=== PATIENT | female | born 1930 | race Caucasian/White ===

== ENCOUNTER → 2017-04-18 | Outpatient (CLI) | payer OTHER ==
[2016-01-21 09:18] VITALS: BP 166/76
--- NOTE | 2017-04-18 11:02 | RAD ---
HISTORY: Chronic pain. Study: Five views of the left shoulder. Comparison: Left shoulder series dated January 12, 2016. Findings: Diffuse osteopenia. 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 No ac andrew fracture or dislocation. Patient is status post vertebroplasty of several upper thoracic vertebr al bodies. The visualized lung is clear. IMPRESSION: Chronic findings as above. Reported By:
== END | disposition home or self-care (01) ==
LOC: RAD 10:21
PROVIDERS: ATTEND Specialist
DX: M75.82 Other shoulder lesions, left shoulder (principal); M85.88 Other specified disorders of bone density and structure, other site; M19.012 Primary osteoarthritis, left shoulder; Z98.890 Other specified postprocedural states
CPT/HCPCS: 73030

== ENCOUNTER 2017-06-05 17:24 | Inpatient (IN) | payer OTHER ==
[~2017-06-05 17:24] MED LIST: DIPRIVAN VIAL ONE; ZOFRAN INJ 4 MG VIAL ONE
--- NOTE | 2017-06-05 17:46 | DR.GENAD ---
HPI - PCP Primary Care Physician: DIANELYS - Complaint/Symptoms Chief Complaint:: PATIENT STATED THAT SHE FEEL EARLIER AND NOW IS C/O LEFT HIP PAIN - Nurses notes reviewed Nurses Notes Review: Yes - Source History Provided: Patient - Mode of Arrival Mode of Arrival: EMS - Timing Onset of Chief Complaint: 06/05/17 PMH - PMH Past Medical History: Yes Past Medical History: Hypertension, Hyperthyroidism Past Surgical History: Yes Surgical History: Hysterectomy, Ortho Surgery - Family History History of Family Medical Conditions: No - Social History Does patient currently use any type of tobacco product: No Have you used tobacco products in the last 12 months: No Type of Tobacco Use: None Does any household member use tobacco: No Alcohol Use: None Do you use any recreational Drugs:: No Lives With: Alone Lives Where: Home - infectious screening In the last 2 months have you had wt loss of >10#?: NO Have you had fever, night sweats or hemotysis?: No Have you traveled outside the country in the last 6 months?: No Isolation: Standard PE - Vital Signs Vitals: Temperature 98.4 F Pulse Rate [Left Brachial] 84 Pulse Rate 79 Respiratory Rate 16 Blood Pressure [Right Arm] 189/86 Blood Pressure 167/77 O2 Sat by Pulse Oximetry 99 ROR - Labs Reviewed Result Diagrams: 06/05/17 17:53 06/05/17 17:53 Laboratory: WBC 8.6 X10^3/uL (3.6-10.0) 06/05/17 17:53 RBC 4.46 X10^6/uL (3.5-5.4) 06/05/17 17:53 Hgb 13.7 g/dL (12.0-16.0) 06/05/17 17:53 Hct 40.1 % (36.0-47.0) 06/05/17 17:53 MCV 89.8 fL (80.0-100.0) 06/05/17 17:53 MCH 30.7 pg (27.0-34.0) 06/05/17 17:53 MCHC 34.2 g/dL (33.0-35.0) 06/05/17 17:53 RDW 14.0 % (11.6-16.5) 06/05/17 17:53 Plt Count 184 X10^3/uL (150.0-450.0) 06/05/17 17:53 MPV 9.0 fL (7.4-11.0) 06/05/17 17:53 Neut % 76.2 % (42.0-75.0) H 06/05/17 17:53 Lymph % 18.2 % (21.0-51.0) L 06/05/17 17:53 Brown % 4.5 % (0.0-13.0) 06/05/17 17:53 Eos % 0.1 % (0.9-2.9) L 06/05/17 17:53 Baso % 1.0 % (0.2-1.0) 06/05/17 17:53 Neut # 6.6 x10^3/uL (2.2-4.8) H 06/05/17 17:53 Lymph # 1.6 X10^3/uL (1.3-2.9) 06/05/17 17:53 Brown # 0.4 x10^3/uL (0.3-0.8) 06/05/17 17:53 Eos # 0.0 x10^3/uL (0.0-0.2) 06/05/17 17:53 Baso # 0.1 X10^3/uL (0.0-0.1) 06/05/17 17:53 Absolute Nucleated RBC 0.1 /100WBC 06/05/17 17:53 INR Target Range - 06/05/17 17:53 INR 0.98 (0.8-1.3) 06/05/17 17:53 PTT 23.9 SECONDS (22.9-36.5) 06/05/17 17:53 PTT Comment - 06/05/17 17:53 Sodium 142 mmol/L (136-145) 06/05/17 17:53 Corrected Sodium 142 mmol/L (136-145) 06/05/17 17:53 Potassium 4.3 mmol/L (3.5-5.1) 06/05/17 17:53 Chloride 105 mmol/L (98-107) 06/05/17 17:53 Carbon Dioxide 33.4 mmol/L (21-32) H 06/05/17 17:53 BUN 57 mg/dL (7-18) H 06/05/17 17:53 Creatinine 1.73 mg/dL (0.55-1.02) H 06/05/17 17:53 Est GFR (MDRD) Af Amer 36 (>60) L 06/05/17 17:53 Est GFR (MDRD) Non-Af 30 (>60) L 06/05/17 17:53 Glucose 117 mg/dL (65-99) H 06/05/17 17:53 Calcium 9.1 mg/dL (8.5-10.1) 06/05/17 17:53 Corrected Calcium TNP 06/05/17 17:53 Total Bilirubin 0.30 mg/dL (0.2-1.0) 06/05/17 17:53 AST 19 Units/L (15-37) 06/05/17 17:53 ALT 18 Units/L (12-78) 06/05/17 17:53 Alkaline Phosphatase 54 Units/L (46-116) 06/05/17 17:53 Total Protein 7.9 g/dL (6.4-8.2) 06/05/17 17:53 Albumin 3.6 g/dL (3.4-5.0) 06/05/17 17:53 Globulin 4.3 g/dL (2.5-4.5) 06/05/17 17:53 Albumin/Globulin Ratio 0.8 Ratio (1.1-2.1) L 06/05/17 17:53 Blood Type AB NEGATIVE 06/05/17 17:53 Antibody Screen Negative 06/05/17 17:53 Crossmatch See Detail 06/05/17 17:53 - Discharge Plan Condition: Stable - Follow ups/Referrals - Instructions
[2017-06-05 18:08] LABS: BASOPHILS # (AUTO) 0.1 X10^3/uL (0.0-0.1); EOSINOPHILS % (AUTO) 0.1 % (0.9-2.9); HEMATOCRIT 40.1 % (36.0-47.0); HEMOGLOBIN 13.7 g/dL (12.0-16.0); LYMPHOCYTES # (AUTO) 1.6 X10^3/uL (1.3-2.9); LYMPHOCYTES % (AUTO) 18.2 % (21.0-51.0); MEAN CORPUSCULAR HEMOGLOBIN 30.7 pg (27.0-34.0); MEAN CORPUSCULAR HGB CONC 34.2 g/dL (33.0-35.0); MEAN CORPUSCULAR VOLUME 89.8 fL (80.0-100.0); MONOCYTES # (AUTO) 0.4 x10^3/uL (0.3-0.8); MONOCYTES % (AUTO) 4.5 % (0.0-13.0); NEUTROPHILS # (AUTO) 6.6 x10^3/uL (2.2-4.8); NEUTROPHILS % (AUTO) 76.2 % (42.0-75.0); PLATELET COUNT 184 X10^3/uL (150.0-450.0); RED BLOOD COUNT 4.46 X10^6/uL (3.5-5.4); WHITE BLOOD COUNT 8.6 X10^3/uL (3.6-10.0)
[2017-06-05 18:17] LABS: ALANINE AMINOTRANSFERASE 18 Units/L (12-78); ALBUMIN 3.6 g/dL (3.4-5.0); ALKALINE PHOSPHATASE 54 Units/L (46-116); ASPARTATE AMINO TRANSFERASE 19 Units/L (15-37); BLOOD UREA NITROGEN 57 mg/dL (7-18); CALCIUM 9.1 mg/dL (8.5-10.1); CARBON DIOXIDE 33.4 mmol/L (21-32); CHLORIDE 105 mmol/L (98-107); COR NA(FOR HYPERGLY) 142 mmol/L (136-145); CREATININE 1.73 mg/dL (0.55-1.02); GLUCOSE 117 mg/dL (65-99); SODIUM 142 mmol/L (136-145); TOTAL PROTEIN 7.9 g/dL (6.4-8.2); eGFR BLACK RACES 36 (>60); eGFR NON BLACK RACES 30 (>60)
--- NOTE | 2017-06-05 18:56 | CT ---
CT pelvis without contrast Indication: Left hip pain post fall Comparison: None available Technique: Multiple axial images of the pelvis were obtained from the iliac crest to the proximal th igh without administration of IV contrast. Sagittal and coronal reformats were performed and review ed. Radiation dose reduction techniques were performed utilizing adjustment for MA/kVP based on patient body size. Findings: The there is acute fracture within the intertrochanteric left proximal femur. There is a comminuted, mildly displaced greater trochanteric fracture. The lesser trochanter remains intact. Femoral head remains well positioned within the left acetabulum. There are chronic, healed fracture deformities o f the right inferior and superior pubic rami. Moderate degenerative changes noted within the right f emoral acetabular joint. The pubic symphysis and SI joints are intact. There are degenerative change s within both the pubic symphysis and SI joints. Moderate osteopenia. Moderate calcified atheroscler otic disease of the visualized abdominal aorta. There is cortical irregularity and focal angulation involving the superior sacrum on sagittal image 47 consistent with an age-indeterminate sacral fracture. Impression: 1.Acute proximal left femoral fracture centered within the intertrochanteric region of the left femu r with comminuted, mildly displaced fracture extending into the greater trochanter. No femoral head dislocation or acetabular fracture. 2.Age indeterminate superior sacral fracture 3. Healed fracture deformities of the right superior inferior pubic rami . 4. Moderate osteopenia . Reported By:
[2017-06-05] MEDS ORDERED: MORPHINE SULFATE INJ 4 MG IVP ONE (19:37)
[2017-06-05] MEDS ORDERED: MORPHINE SULFATE INJ 4 MG ONE (19:38)
--- NOTE | 2017-06-05 20:31 | RAD ---
AP Chest Indication: Chest pain Comparison: 11/28/2015 Findings: The trachea is midline. Heart size is mildly enlarged, unchanged from prior exam. Large hiatal herni a is again noted. Calcified atherosclerotic disease of the aortic arch. Moderate diffuse coarsening of the interstitium consistent chronic interstitial lung changes. Rounded area of increased opacity projecting over the left upper lobe is indeterminate, this may re present confluence of osseous shadows and pulmonary vasculature however correlation with followup PA and lateral chest radiograph is recommended for improved characterization and exclusion of underlyi ng pulmonary nodule or infiltrate. No pleural effusion or pneumothorax. Moderate osteopenia without acute osseous abnormality. Methylme thacrylate is again noted within mid thoracic spine vertebral bodies. Impression: See above. Reported By:
[2017-06-05] MEDS ORDERED: KETALAR ONE (20:32)
[2017-06-05] MEDS ORDERED: NS 1000 ML 1,000 ML ONE (20:32)
[2017-06-05] MEDS ORDERED: MARCAINE/EPINEPHRINE ONE ×2 (20:32→21:39)
[2017-06-05] MEDS ORDERED: XYLOCAINE 1 % (PLAIN) ONE (21:02)
[2017-06-05] MEDS: NS 1000 ML 1,000 ML IV SCH (21:10)
[2017-06-05] MEDS ORDERED: NARCAN INJ IVP PRN (21:59)
[2017-06-05] MEDS ORDERED: DILAUDID PCA 60 MG IVP PRN (21:59)
--- NOTE | 2017-06-05 22:05 | DR.H&P ---
H&P - History & Physical for Day of: H&P Date: 06/05/17 - Chief Complaint Chief Complaint: left femur fx - Allergies Allergies/Adverse Reactions: Allergies Allergy/AdvReac Type Severity Reaction Status Date / Time Methylprednisolone Allergy Verified 05/26/14 08:55 [From Medrol] - History of Present Illness History of Present Illness: left femur fx secondary to fall - Past Medical History Past Medical History: Hypertension, Hyperthyroidism - Past Surgical History Surgical History: Hysterectomy, Ortho Surgery - Social History Does patient currently use any type of tobacco product: No Have you used tobacco products in the last 12 months: No Type of Tobacco Use: None Does any household member use tobacco: No Alcohol Use: None - Medications Home Medications: Acetaminophen with Codeine [Tylenol with Codeine #3 Tablet] 1 tab PO BID PRN [History Confirmed 06/05/17] - Review of Systems Musculoskeletal: Leg Pain - Physical Exam Vital Signs: Temperature 98.4 F Pulse Rate [Left Brachial] 84 Respiratory Rate 16 Blood Pressure [Right Arm] 144/70 O2 Sat by Pulse Oximetry 100 Musculoskeletal: Left, Leg Mood Description: Calm - Assessment/Plan (1) Fx femur shaft-closed Qualifiers: Encounter type: E Fracture morphology: F Fracture alignment: F Laterality: L Fracture healing: F Status: Acute Plan: lumbar epidural for pre and post op pain control per Dr Aaron request
--- NOTE | 2017-06-05 22:34 | CT ---
CT chest without contrast Indication: Chest pain, abnormal chest radiograph Comparison: Chest radiograph from earlier the same day. Technique: CT images of the chest were obtained without contrast. Automatic exposure control was uti lized. Findings: There is generalized osteopenia with multiple chronic compression deformities with previou s T8 and T9 kyphoplasty. There is vertebra plana at T6 and T10. No aggressive osseous lesions are se en. Images through the upper abdomen demonstrate no acute abnormality. There is large hiatal hernia containing essentially the entire stomach. There is a 1.3 cm calcification within the thyroid. Consider ultrasound for further evaluation, if i ndicated. The heart size is normal, without significant pericardial thickening or pericardial effusion. Marked thoracic aortic atherosclerosis is noted, although the aorta is non aneurysmal. No intrathoracic ad enopathy identified, within the limitations of a noncontrast study. There are chronic appearing mild interstitial changes of the lungs, most predominant within the base s and apices. No solid mass or acute consolidation identified. There is no significant pleural effus ion or pneumothorax. The major airways are patent. Impression: 1. Mild interstitial changes of the lungs. No acute consolidation or lung mass. The radiographic fin ding was likely artifactual. 2. Large hiatal hernia, osteopenia with multiple thoracic compression fractures, and other findings as above. Reported By:
[2017-06-05] MEDS: ZOFRAN INJ 4 MG VIAL IVP PRN (22:53)
[2017-06-05 23:48] LABS: BILIRUBIN,URINE NEGATIVE (NEGATIVE); BLOOD/HEMOGLOBIN,URINE 1+ (NEGATIVE); GLUCOSE, URINE NEGATIVE (NEGATIVE); KETONES,URINE NEGATIVE (NEGATIVE); LEUKOCYTE ESTERASE ,URINE NEGATIVE (NEGATIVE); NITRITES,URINE POSITIVE (NEGATIVE); PROTEIN,URINE 2+ (NEGATIVE); UROBILINOGEN,URINE NORMAL (NORMAL)
[2017-06-06 00:17] LABS: APPEARANCE,URINE HAZY (CLEAR); BACTERIA,URINE 3+ /HPF (NEGATIVE); COLOR,URINE YELLOW (YELLOW); RBC,URINE 0-3 /HPF (NEGATIVE); SQUAMOUS EPITHELIAL CELL,UR RARE /HPF (NEGATIVE)
[2017-06-06] MEDS: MORPHINE SULFATE INJ 2 MG IVP PRN ×2 (04:00→08:14)
[2017-06-06 06:12] LABS: BASOPHILS % (AUTO) 0.2 % (0.2-1.0); HEMATOCRIT 34.3 % (36.0-47.0); HEMOGLOBIN 11.5 g/dL (12.0-16.0); LYMPHOCYTES # (AUTO) 0.8 X10^3/uL (1.3-2.9); LYMPHOCYTES % (AUTO) 6.1 % (21.0-51.0); MEAN CORPUSCULAR HEMOGLOBIN 30.2 pg (27.0-34.0); MEAN CORPUSCULAR HGB CONC 33.5 g/dL (33.0-35.0); MEAN CORPUSCULAR VOLUME 90.4 fL (80.0-100.0); MEAN PLATELET VOLUME 9.5 fL (7.4-11.0); MONOCYTES # (AUTO) 0.8 x10^3/uL (0.3-0.8); MONOCYTES % (AUTO) 5.5 % (0.0-13.0); NEUTROPHILS # (AUTO) 12.2 x10^3/uL (2.2-4.8); NEUTROPHILS % (AUTO) 88.2 % (42.0-75.0); PLATELET COUNT 169 X10^3/uL (150.0-450.0); RED BLOOD COUNT 3.79 X10^6/uL (3.5-5.4); RED CELL DISTRIBUTION WIDTH 14.2 % (11.6-16.5); WHITE BLOOD COUNT 13.8 X10^3/uL (3.6-10.0)
[2017-06-06 06:41] LABS: ALBUMIN 3.3 g/dL (3.4-5.0); CALCIUM 8.4 mg/dL (8.5-10.1); CARBON DIOXIDE 29.2 mmol/L (21-32); CREATININE 1.56 mg/dL (0.55-1.02); TOTAL PROTEIN 7.2 g/dL (6.4-8.2)
[2017-06-06] MEDS: ROCEPHIN VIAL 1 GM 1 GM in NS 50 ML IV + SPIKE MINIBAG* 50 ML IV SCH (08:57)
--- NOTE | 2017-06-06 09:18 | DR.H&P ---
H&P - History & Physical for Day of: H&P Date: 06/05/17 - Chief Complaint Chief Complaint: fall, left hip pain - Allergies Allergies/Adverse Reactions: Allergies Allergy/AdvReac Type Severity Reaction Status Date / Time iodine AdvReac Verified 06/05/17 23:16 methylprednisolone AdvReac Verified 06/05/17 23:16 [From Medrol] - History of Present Illness History of Present Illness: ER ADMISSION AFTER FALL WITH LEFT HIP PAIN. PT STATES SHE HAD BEEN WORKING IN [employer] ALL DAY BUT DID NOT FEEL OVER HEATED. PT THINKS SHE STEPPED WRONG AND FELL ON LEFT SIDE. PT XRAY IN THE ED LEFT FEMUR FRACTURE. PT ADMITTED FOR ORTHO CONSULT AND PAIN CONTROL. PT HAD PMH OF HTN. - Past Medical History Past Medical History: GERD, Hypertension, Hyperthyroidism - Past Surgical History Surgical History: Hysterectomy, Ortho Surgery - Social History Does patient currently use any type of tobacco product: No Have you used tobacco products in the last 12 months: No Type of Tobacco Use: None Does any household member use tobacco: No Alcohol Use: None Drug Use: None - Medications Home Medications: Acetaminophen with Codeine [Tylenol with Codeine #3 Tablet] 1 - 2 tab PO Q4H PRN 06/05/17 [History Confirmed 06/05/17] - Review of Systems Constitutional: No Symptoms Reported Eyes: No Symptoms Reported ENT: No Symptoms Reported Respiratory: No Symptoms Reported Cardiovascular: No Symptoms Reported Gastrointestinal: Nausea, Other (APPETITE) Musculoskeletal: Leg Pain (LEFT HIP) Skin: Bruising Neurological: No Symptoms Reported - Physical Exam Vital Signs: Temperature 98.9 F Pulse Rate [Left Brachial] 98 Respiratory Rate 20 Blood Pressure [Right Arm] 117/77 O2 Sat by Pulse Oximetry 97 Oriented: Normal Eyes: Normal Ear: Normal Nose: Normal Throat: Normal Respiratory: Clear Throughout Cardiovascular: Normal : Normal Auscultation: Bowel Sounds: Normal Palpation: Normal Tenderness: Epigastric (MILD) Skin: Normal Musculoskeletal: Left, Hip, Deformity, Motor Deficit Psychiatric: Anxiety Mood Description: Calm Speech Pattern: Clear - Assessment/Plan (1) Fx femur shaft-closed Qualifiers: Encounter type: E Fracture morphology: F Fracture alignment: F Laterality: L Fracture healing: F Status: Acute Plan: ADMIT FOR ORTHO CONSULT AND PAIN CONTROL. BP CONTROL (2) Hypertension Qualifiers: Hypertension type: H Status: Acute (3) Hypothyroid Qualifiers: Hypothyroidism type: H Status: Acute
[2017-06-06] MEDS ORDERED: MORPHINE SULFATE INJ 4 MG IVP PRN (10:10)
[2017-06-06] MEDS: NS 1000 ML 1,000 ML IV SCH ×2 (10:43→21:16)
[2017-06-06] MEDS ORDERED: NS 1000 ML 1,000 ML ONE (12:22)
[2017-06-06] MEDS ORDERED: XYLOCAINE 2% and EPINEPHRINE 1:100,000 ONE (13:11)
[2017-06-06 13:50] VITALS: BMI 16.6
[2017-06-06] MEDS ORDERED: NS 50 ML IV + SPIKE MINIBAG* 50 ML IV ONE (13:52)
[2017-06-06] MEDS ORDERED: ANCEF VIAL 1 GM ONE (13:52)
[2017-06-06] MEDS ORDERED: BACITRACIN VIAL ONE (14:57)
[2017-06-06] MEDS ORDERED: BACTROBAN OINT ONE (15:15)
[2017-06-06] MEDS ORDERED: MORPHINE SULFATE PCA 30 MG IV PRN (15:17)
[2017-06-06] MEDS ORDERED: ZOFRAN INJ 4 MG VIAL IVP PRN (15:33)
[2017-06-06] MEDS ORDERED: DILAUDID INJ IVP PRN (15:33)
[2017-06-06] MEDS ORDERED: PHENERGAN INJ 25 MG IVP PRN (15:33)
[2017-06-06] MEDS ORDERED: BENADRYL INJ 50 MG VIAL IVP PRN (15:33)
[2017-06-06] MEDS ORDERED: NS IJ PRN ×2 (16:10)
[2017-06-06] MEDS ORDERED: Q PUMP EPI PRN (16:10)
[2017-06-06] MEDS ORDERED: MARCAINE 0.5% IJ PRN ×2 (16:10)
[2017-06-06] MEDS: VALIUM PO PRN (16:15)
--- NOTE | 2017-06-06 16:43 | RAD ---
Left hip two views Indication: Postop left hip radiographs-two views Indication: Left femoral neck fracture has been reduced in near anatomic alignment, with femoral nec k and shaft elizabeth and screw fixation hardware in position. Gas in clips seen about the left hip. Bowel gas obscures the pelvis which shows degenerative change at the SI joints and right hip. Osteopenia is present. Impression: Interval fixation of the left femoral neck fracture projects as expected. Reported By:
[2017-06-06] MEDS: ZOFRAN INJ 4 MG VIAL IVP PRN (17:06)
[2017-06-06] MEDS ORDERED: VALIUM PO PRN (18:33)
--- NOTE | 2017-06-06 18:35 | PCM.PROG ---
Progress Note - Progress Note for Day of Date: 06/06/17 - Subjective Subjective: 86 WF ADMITTED ON 06/05 WITH LEFT FEMUR FRACTURE, PT NPO FOR HIP REPAIR PER DR VELASCO THIS AM. - Past Medical Family Social History Past Med/Fam/Surg Hx: No changes since H&P Allergies: Allergies iodine Adverse Reaction (Verified 06/05/17 23:16) methylprednisolone [From Medrol] Adverse Reaction (Verified 06/05/17 23:16) - Review of Systems ROS: No change since H&P - Vital Signs and I&O's Vital Signs: Temperature 98 F Pulse Rate [Right Brachial] 93 Pulse Rate [Left Brachial] 98 Pulse Rate 98 Respiratory Rate 18 Blood Pressure [Right Arm] 142/68 Blood Pressure 133/79 O2 Sat by Pulse Oximetry 95 Intake and Output: Intake & Output 06/04/17 06/05/17 06/06/17 06/07/17 11:59 11:59 11:59 11:59 Intake Total 0 450 Output Total 400 2750 Balance -400 -2300 - Physical Exam Oriented: Normal Eyes: Normal Ear: Normal Nose: Normal Throat: Normal Respiratory: Normal Cardiovascular: Normal : Normal Auscultation: Bowel Sounds: Normal Tenderness: Epigastric (MILD) Skin: Normal Musculoskeletal: Left, Hip, Deformity, Motor Deficit Psychiatric: Anxiety Mood Description: Calm Speech Pattern: Clear, Appropriate - Laboratory and Diagnostics Result Diagrams: 06/06/17 05:35 06/06/17 05:35 Labs: Laboratory WBC 13.8 X10^3/uL (3.6-10.0) H 06/06/17 05:35 RBC 3.79 X10^6/uL (3.5-5.4) 06/06/17 05:35 Hgb 11.5 g/dL (12.0-16.0) L D 06/06/17 05:35 Hct 34.3 % (36.0-47.0) L 06/06/17 05:35 MCV 90.4 fL (80.0-100.0) 06/06/17 05:35 MCH 30.2 pg (27.0-34.0) 06/06/17 05:35 MCHC 33.5 g/dL (33.0-35.0) 06/06/17 05:35 RDW 14.2 % (11.6-16.5) 06/06/17 05:35 Plt Count 169 X10^3/uL (150.0-450.0) 06/06/17 05:35 MPV 9.5 fL (7.4-11.0) 06/06/17 05:35 Neut % 88.2 % (42.0-75.0) H 06/06/17 05:35 Lymph % 6.1 % (21.0-51.0) L 06/06/17 05:35 [place] % 5.5 % (0.0-13.0) 06/06/17 05:35 Eos % 0.0 % (0.9-2.9) L 06/06/17 05:35 Baso % 0.2 % (0.2-1.0) 06/06/17 05:35 Neut # 12.2 x10^3/uL (2.2-4.8) H 06/06/17 05:35 Lymph # 0.8 X10^3/uL (1.3-2.9) L 06/06/17 05:35 [place] # 0.8 x10^3/uL (0.3-0.8) 06/06/17 05:35 Eos # 0.0 x10^3/uL (0.0-0.2) 06/06/17 05:35 Baso # 0.0 X10^3/uL (0.0-0.1) 06/06/17 05:35 Absolute Nucleated RBC 0.0 /100WBC 06/06/17 05:35 INR Target Range - 06/05/17 17:53 INR 0.98 (0.8-1.3) 06/05/17 17:53 PTT 23.9 SECONDS (22.9-36.5) 06/05/17 17:53 PTT Comment - 06/05/17 17:53 Sodium 144 mmol/L (136-145) 06/06/17 05:35 Corrected Sodium 145 mmol/L (136-145) 06/06/17 05:35 Potassium 5.1 mmol/L (3.5-5.1) 06/06/17 05:35 Chloride 108 mmol/L (98-107) H 06/06/17 05:35 Carbon Dioxide 29.2 mmol/L (21-32) 06/06/17 05:35 BUN 46 mg/dL (7-18) H 06/06/17 05:35 Creatinine 1.56 mg/dL (0.55-1.02) H 06/06/17 05:35 Est GFR (MDRD) Af Amer 40 (>60) L 06/06/17 05:35 Est GFR (MDRD) Non-Af 33 (>60) L 06/06/17 05:35 Glucose 143 mg/dL (65-99) H 06/06/17 05:35 Calcium 8.4 mg/dL (8.5-10.1) L 06/06/17 05:35 Corrected Calcium 9.0 mg/dL (8.5-10.1) 06/06/17 05:35 Total Bilirubin 0.50 mg/dL (0.2-1.0) 06/06/17 05:35 AST 18 Units/L (15-37) 06/06/17 05:35 ALT 18 Units/L (12-78) 06/06/17 05:35 Alkaline Phosphatase 47 Units/L (46-116) 06/06/17 05:35 Total Protein 7.2 g/dL (6.4-8.2) 06/06/17 05:35 Albumin 3.3 g/dL (3.4-5.0) L 06/06/17 05:35 Globulin 3.9 g/dL (2.5-4.5) 06/06/17 05:35 Albumin/Globulin Ratio 0.8 Ratio (1.1-2.1) L 06/06/17 05:35 Specimen Type Catherized urine 06/05/17 23:31 Urine Color Yellow (YELLOW) 06/05/17 23:31 Urine Appearance Hazy (CLEAR) 06/05/17 23:31 Urine pH 6.0 (5.0 - 8.0) 06/05/17 23:31 Ur Specific [place] 1.015 (1.000-1.030) 06/05/17 23:31 Urine Protein 2+ (NEGATIVE) 06/05/17 23:31 Urine Glucose (UA) Negative (NEGATIVE) 06/05/17 23:31 Urine Ketones Negative (NEGATIVE) 06/05/17 23:31 Urine Occult Blood 1+ (NEGATIVE) 06/05/17 23:31 Urine Nitrite Positive (NEGATIVE) 06/05/17 23:31 Urine Bilirubin Negative (NEGATIVE) 06/05/17 23:31 Urine Urobilinogen Normal (NORMAL) 06/05/17 23:31 Ur Leukocyte Esterase Negative (NEGATIVE) 06/05/17 23:31 Urine RBC 0-3 /HPF (NEGATIVE) 06/05/17 23:31 Urine WBC 10-15 /HPF (NEGATIVE) 06/05/17 23:31 Ur Squamous Epith Cells Rare /HPF (NEGATIVE) 06/05/17 23:31 Urine Bacteria 3+ /HPF (NEGATIVE) 06/05/17 23:31 Ur Culture Indicated? Yes/culture set up 06/05/17 23:31 Staph aureus (PCR) Negative (NEGATIVE) 06/06/17 08:38 MRSA (PCR) Negative (NEGATIVE) 06/06/17 08:38 Blood Type AB NEGATIVE 06/05/17 17:53 Antibody Screen Negative 06/05/17 17:53 Crossmatch See Detail 06/05/17 17:53 - Plan (1) Fx femur shaft-closed Status: Acute Qualifiers: Encounter type: E Fracture morphology: F Fracture alignment: F Laterality: L Fracture healing: F Plan: ORTHO CONSULT AND PAIN CONTROL. BP CONTROL (2) Hypertension Status: Acute Qualifiers: Hypertension type: H Plan: RESUME HOME MEDS (3) Hypothyroid Status: Acute Qualifiers: Hypothyroidism type: H
[2017-06-07 05:42] LABS: BASOPHILS % (AUTO) 0.4 % (0.2-1.0); HEMATOCRIT 25.5 % (36.0-47.0); HEMOGLOBIN 8.8 g/dL (12.0-16.0); LYMPHOCYTES # (AUTO) 0.9 X10^3/uL (1.3-2.9); LYMPHOCYTES % (AUTO) 11.5 % (21.0-51.0); MEAN CORPUSCULAR HEMOGLOBIN 31.2 pg (27.0-34.0); MEAN CORPUSCULAR HGB CONC 34.4 g/dL (33.0-35.0); MEAN CORPUSCULAR VOLUME 90.8 fL (80.0-100.0); MEAN PLATELET VOLUME 9.5 fL (7.4-11.0); MONOCYTES # (AUTO) 0.6 x10^3/uL (0.3-0.8); MONOCYTES % (AUTO) 8.1 % (0.0-13.0); NEUTROPHILS # (AUTO) 6.3 x10^3/uL (2.2-4.8); PLATELET COUNT 115 X10^3/uL (150.0-450.0); RED BLOOD COUNT 2.81 X10^6/uL (3.5-5.4); RED CELL DISTRIBUTION WIDTH 14.1 % (11.6-16.5); WHITE BLOOD COUNT 7.9 X10^3/uL (3.6-10.0)
[2017-06-07 05:48] LABS: ALBUMIN 2.6 g/dL (3.4-5.0); CALCIUM 7.8 mg/dL (8.5-10.1); COR CA(FOR HYPOALB) 8.9 mg/dL (8.5-10.1); CREATININE 1.41 mg/dL (0.55-1.02); TOTAL PROTEIN 5.9 g/dL (6.4-8.2)
[2017-06-07] MEDS ORDERED: MORPHINE SULFATE INJ 2 MG IVP PRN (09:20)
--- NOTE | 2017-06-07 09:47 | DR.CONSULT ---
Consult - Consultation for Day of: Date: 06/06/17 (left hip IT fracture) - Allergies Allergies/Adverse Reactions: Allergies Allergy/AdvReac Type Severity Reaction Status Date / Time iodine AdvReac Verified 06/05/17 23:16 methylprednisolone AdvReac Verified 06/05/17 23:16 [From Medrol] - History of Present Illness History of Present Illness: fall at home and broke the left hip. was sen in ER. Left hip It fracture. - Past Medical History Past Medical History: GERD, Hypertension, Hyperthyroidism - Past Surgical History Surgical History: Hysterectomy, Ortho Surgery - Social History Does patient currently use any type of tobacco product: No Have you used tobacco products in the last 12 months: No Type of Tobacco Use: None Does any household member use tobacco: No Alcohol Use: None Drug Use: None - Medications Home Medications: Acetaminophen with Codeine [Tylenol with Codeine #3 Tablet] 1 - 2 tab PO Q4H PRN 06/05/17 [History Confirmed 06/05/17] - Review of Systems Musculoskeletal: Other (left hip pain.) - Physical Exam Vital Signs: Temperature 99.4 F Pulse Rate [Right Brachial] 84 Pulse Rate [Left Brachial] 79 Pulse Rate 98 Respiratory Rate 16 Blood Pressure [Left Arm] 134/65 Blood Pressure [Right Arm] 136/60 Blood Pressure 133/79 O2 Sat by Pulse Oximetry 95 Musculoskeletal: Left, Hip, Swelling, Tender - Plan Plan: CRIF with Hip Gamma nail today.
[2017-06-07] MEDS: NS 1000 ML 1,000 ML IV SCH (10:14)
[2017-06-07] MEDS: ROCEPHIN VIAL 1 GM 1 GM in NS 50 ML IV + SPIKE MINIBAG* 50 ML IV SCH (10:14)
[2017-06-07] MEDS: HYDROCHLOROTHIAZIDE 12.5 MG CAP PO SCH (10:14)
[2017-06-07] MEDS: LOTENSIN TAB 10 MG PO SCH (10:14)
[2017-06-07] MEDS: SYNTHROID 50 mcg TAB PO SCH (10:15)
[2017-06-07] MEDS: TAB-A-VITE PO SCH ×2 (10:15→10:39)
[2017-06-07] MEDS ORDERED: NS 250 ML IV 250 ML IV ONE (13:44)
[2017-06-07] MEDS: VALIUM PO PRN (16:13)
[2017-06-07] MEDS: COLACE CAP 100 MG PO SCH (20:33)
[2017-06-07] MEDS: MILK OF MAGNESIA PO SCH (20:33)
[2017-06-07] MEDS ORDERED: NS 500 ML IV 500 ML IV ONE (20:46)
[2017-06-08] MEDS: NS 1000 ML 1,000 ML IV SCH ×4 (05:53→16:51)
[2017-06-08 06:17] LABS: ALANINE AMINOTRANSFERASE 15 Units/L (12-78); ALBUMIN 2.3 g/dL (3.4-5.0); ALKALINE PHOSPHATASE 39 Units/L (46-116); ASPARTATE AMINO TRANSFERASE 27 Units/L (15-37); BLOOD UREA NITROGEN 22 mg/dL (7-18); CALCIUM 7.2 mg/dL (8.5-10.1); CARBON DIOXIDE 28.9 mmol/L (21-32); CHLORIDE 110 mmol/L (98-107); COR CA(FOR HYPOALB) 8.6 mg/dL (8.5-10.1); CREATININE 1.17 mg/dL (0.55-1.02); GLUCOSE 93 mg/dL (65-99); SODIUM 143 mmol/L (136-145); TOTAL PROTEIN 5.5 g/dL (6.4-8.2); eGFR BLACK RACES 56 (>60); eGFR NON BLACK RACES 47 (>60)
[2017-06-08 06:32] LABS: BASOPHILS % (AUTO) 0.5 % (0.2-1.0); HEMATOCRIT 31.6 % (36.0-47.0); LYMPHOCYTES # (AUTO) 0.8 X10^3/uL (1.3-2.9); LYMPHOCYTES % (AUTO) 8.7 % (21.0-51.0); MEAN CORPUSCULAR HEMOGLOBIN 30.8 pg (27.0-34.0); MEAN CORPUSCULAR HGB CONC 34.9 g/dL (33.0-35.0); MEAN CORPUSCULAR VOLUME 88.3 fL (80.0-100.0); MEAN PLATELET VOLUME 9.6 fL (7.4-11.0); MONOCYTES # (AUTO) 0.5 x10^3/uL (0.3-0.8); MONOCYTES % (AUTO) 5.6 % (0.0-13.0); NEUTROPHILS # (AUTO) 7.5 x10^3/uL (2.2-4.8); NEUTROPHILS % (AUTO) 85.2 % (42.0-75.0); PLATELET COUNT 93 X10^3/uL (150.0-450.0); RED BLOOD COUNT 3.57 X10^6/uL (3.5-5.4); WHITE BLOOD COUNT 8.8 X10^3/uL (3.6-10.0)
[2017-06-08] MEDS: LOVENOX INJ 40 MG SYR SC SCH ×2 (07:29→21:25)
[2017-06-08] MEDS: HYDROCHLOROTHIAZIDE 12.5 MG CAP PO SCH (08:20)
[2017-06-08] MEDS: LOTENSIN TAB 10 MG PO SCH (08:20)
[2017-06-08] MEDS: ROCEPHIN VIAL 1 GM 1 GM in NS 50 ML IV + SPIKE MINIBAG* 50 ML IV SCH (08:20)
[2017-06-08] MEDS: TAB-A-VITE PO SCH (08:21)
[2017-06-08] MEDS: SYNTHROID 50 mcg TAB PO SCH (08:21)
[2017-06-08] MEDS: COLACE CAP 100 MG PO SCH (21:24)
[2017-06-08] MEDS: VALIUM PO PRN (21:25)
[2017-06-08] MEDS: MILK OF MAGNESIA PO SCH (21:26)
[2017-06-08] MEDS: PERCOCET TAB 5/325 MG PO PRN (21:26)
[2017-06-09] MEDS: NS 1000 ML 1,000 ML IV SCH ×3 (04:17→21:02)
[2017-06-09 05:30] LABS: BASOPHILS % (AUTO) 0.3 % (0.2-1.0); EOSINOPHILS % (AUTO) 0.1 % (0.9-2.9); HEMATOCRIT 29.5 % (36.0-47.0); HEMOGLOBIN 10.4 g/dL (12.0-16.0); LYMPHOCYTES % (AUTO) 12.3 % (21.0-51.0); MEAN CORPUSCULAR HEMOGLOBIN 31.1 pg (27.0-34.0); MEAN CORPUSCULAR HGB CONC 35.2 g/dL (33.0-35.0); MEAN CORPUSCULAR VOLUME 88.2 fL (80.0-100.0); MEAN PLATELET VOLUME 9.9 fL (7.4-11.0); MONOCYTES # (AUTO) 0.5 x10^3/uL (0.3-0.8); MONOCYTES % (AUTO) 6.3 % (0.0-13.0); NEUTROPHILS # (AUTO) 6.4 x10^3/uL (2.2-4.8); PLATELET COUNT 105 X10^3/uL (150.0-450.0); RED BLOOD COUNT 3.34 X10^6/uL (3.5-5.4); RED CELL DISTRIBUTION WIDTH 14.2 % (11.6-16.5)
[2017-06-09 05:35] LABS: ALANINE AMINOTRANSFERASE 15 Units/L (12-78); ALKALINE PHOSPHATASE 38 Units/L (46-116); ASPARTATE AMINO TRANSFERASE 27 Units/L (15-37); BLOOD UREA NITROGEN 19 mg/dL (7-18); CALCIUM 7.1 mg/dL (8.5-10.1); CHLORIDE 110 mmol/L (98-107); COR CA(FOR HYPOALB) 8.7 mg/dL (8.5-10.1); CREATININE 1.03 mg/dL (0.55-1.02); GLUCOSE 83 mg/dL (65-99); SODIUM 144 mmol/L (136-145); TOTAL PROTEIN 5.3 g/dL (6.4-8.2); eGFR BLACK RACES > 60 (>60); eGFR NON BLACK RACES 54 (>60)
[2017-06-09] MEDS: ROCEPHIN VIAL 1 GM 1 GM in NS 50 ML IV + SPIKE MINIBAG* 50 ML IV SCH (08:06)
[2017-06-09] MEDS: SYNTHROID 50 mcg TAB PO SCH (08:06)
[2017-06-09] MEDS: LOTENSIN TAB 10 MG PO SCH (08:06)
[2017-06-09] MEDS: HYDROCHLOROTHIAZIDE 12.5 MG CAP PO SCH (08:06)
[2017-06-09] MEDS ORDERED: BACTROBAN CREAM TOP PRN (10:44)
[2017-06-09] MEDS ORDERED: BUTT CREAM (COMPOUND) TOP PRN (10:46)
[2017-06-09] MEDS ORDERED: NS IRRIGATION 500 ML IR ONE (10:52)
[2017-06-09] MEDS: PERCOCET TAB 5/325 MG PO PRN (11:18)
[2017-06-09] MEDS: VALIUM PO PRN (12:20)
[2017-06-09] MEDS: TYLENOL #3 TAB (W/CODEINE) PO PRN (16:57)
[2017-06-09] MEDS: LOVENOX INJ 40 MG SYR SC SCH (21:02)
[2017-06-09] MEDS: COLACE CAP 100 MG PO SCH (21:02)
[2017-06-09] MEDS: MILK OF MAGNESIA PO SCH (21:03)
[2017-06-10] MEDS: PERCOCET TAB 5/325 MG PO PRN ×2 (01:58→10:14)
[2017-06-10 05:26] LABS: BASOPHILS # (AUTO) 0.1 X10^3/uL (0.0-0.1); BASOPHILS % (AUTO) 0.7 % (0.2-1.0); HEMATOCRIT 28.7 % (36.0-47.0); HEMOGLOBIN 9.9 g/dL (12.0-16.0); LYMPHOCYTES % (AUTO) 13.2 % (21.0-51.0); MEAN CORPUSCULAR HEMOGLOBIN 30.8 pg (27.0-34.0); MEAN CORPUSCULAR HGB CONC 34.7 g/dL (33.0-35.0); MEAN CORPUSCULAR VOLUME 88.6 fL (80.0-100.0); MEAN PLATELET VOLUME 10.1 fL (7.4-11.0); MONOCYTES # (AUTO) 0.5 x10^3/uL (0.3-0.8); MONOCYTES % (AUTO) 6.1 % (0.0-13.0); PLATELET COUNT 121 X10^3/uL (150.0-450.0); RED BLOOD COUNT 3.23 X10^6/uL (3.5-5.4); RED CELL DISTRIBUTION WIDTH 14.2 % (11.6-16.5); WHITE BLOOD COUNT 7.5 X10^3/uL (3.6-10.0)
[2017-06-10 05:42] LABS: ALANINE AMINOTRANSFERASE 13 Units/L (12-78); ALKALINE PHOSPHATASE 37 Units/L (46-116); ASPARTATE AMINO TRANSFERASE 25 Units/L (15-37); BLOOD UREA NITROGEN 17 mg/dL (7-18); CALCIUM 7.2 mg/dL (8.5-10.1); CARBON DIOXIDE 27.2 mmol/L (21-32); CHLORIDE 110 mmol/L (98-107); COR CA(FOR HYPOALB) 8.8 mg/dL (8.5-10.1); CREATININE 0.94 mg/dL (0.55-1.02); GLUCOSE 84 mg/dL (65-99); SODIUM 143 mmol/L (136-145); TOTAL PROTEIN 5.1 g/dL (6.4-8.2); eGFR BLACK RACES > 60 (>60); eGFR NON BLACK RACES 60 (>60)
[2017-06-10] MEDS: NS 1000 ML 1,000 ML IV SCH ×2 (05:51→11:55)
[2017-06-10] MEDS: LOTENSIN TAB 10 MG PO SCH (08:27)
[2017-06-10] MEDS: SYNTHROID 50 mcg TAB PO SCH (08:27)
[2017-06-10] MEDS: ROCEPHIN VIAL 1 GM 1 GM in NS 50 ML IV + SPIKE MINIBAG* 50 ML IV SCH (08:27)
[2017-06-10] MEDS: HYDROCHLOROTHIAZIDE 12.5 MG CAP PO SCH (08:27)
[2017-06-10] MEDS: TYLENOL #3 TAB (W/CODEINE) PO PRN (13:25)
[2017-06-10 16:35] VITALS: BP 136/61
--- NOTE | 2017-06-11 10:15 | PCM.PROG ---
Progress Note - Progress Note for Day of Date: 06/10/17 (post op visit) - Subjective Subjective: left hip Gamma nail. doing very well. WB as tolerated. pain well controlled. no complaints. - Past Medical Family Social History Past Med/Fam/Surg Hx: No changes since H&P Allergies: Allergies iodine Adverse Reaction (Verified 06/07/17 09:48) methylprednisolone [From Medrol] Adverse Reaction (Verified 06/07/17 09:48) - Review of Systems ROS: No change since H&P - Vital Signs and I&O's Vital Signs: Temperature 98.2 F Pulse Rate [Right Brachial] 70 Pulse Rate [Left Brachial] 73 Pulse Rate 93 Respiratory Rate 20 Blood Pressure [Left Arm] 127/59 Blood Pressure [Right Arm] 136/61 Blood Pressure 133/79 O2 Sat by Pulse Oximetry 100 Intake and Output: Intake & Output 06/08/17 06/09/17 06/10/17 06/11/17 11:59 11:59 11:59 11:59 Intake Total 3351 2550 1960 840 Output Total 1300 950 150 Balance 2051 1600 1810 840 - Physical Exam Oriented: Normal Eyes: Normal Ear: Normal Nose: Normal Throat: Normal Respiratory: Normal Cardiovascular: Normal : Normal Auscultation: Bowel Sounds: Normal Tenderness: Epigastric (MILD) Skin: Normal Musculoskeletal: Left (left hip surgical wound clean and dry. pt able to do SLR and bend knee up to 90. ), Hip, Swelling, Tender Psychiatric: Anxiety Mood Description: Calm Speech Pattern: Clear - Laboratory and Diagnostics Result Diagrams: 06/10/17 03:40 06/10/17 03:40 Labs: 06/05/17 23:31 Urine,Catheterized Urine Culture - Final Klebsiella Pneumoniae Laboratory WBC 7.5 X10^3/uL (3.6-10.0) 06/10/17 03:40 RBC 3.23 X10^6/uL (3.5-5.4) L 06/10/17 03:40 Hgb 9.9 g/dL (12.0-16.0) L 06/10/17 03:40 Hct 28.7 % (36.0-47.0) L 06/10/17 03:40 MCV 88.6 fL (80.0-100.0) 06/10/17 03:40 MCH 30.8 pg (27.0-34.0) 06/10/17 03:40 MCHC 34.7 g/dL (33.0-35.0) 06/10/17 03:40 RDW 14.2 % (11.6-16.5) 06/10/17 03:40 Plt Count 121 X10^3/uL (150.0-450.0) L 06/10/17 03:40 MPV 10.1 fL (7.4-11.0) 06/10/17 03:40 Neut % 80.0 % (42.0-75.0) H 06/10/17 03:40 Lymph % 13.2 % (21.0-51.0) L 06/10/17 03:40 [place] % 6.1 % (0.0-13.0) 06/10/17 03:40 Eos % 0.0 % (0.9-2.9) L 06/10/17 03:40 Baso % 0.7 % (0.2-1.0) 06/10/17 03:40 Neut # 6.0 x10^3/uL (2.2-4.8) H 06/10/17 03:40 Lymph # 1.0 X10^3/uL (1.3-2.9) L 06/10/17 03:40 [place] # 0.5 x10^3/uL (0.3-0.8) 06/10/17 03:40 Eos # 0.0 x10^3/uL (0.0-0.2) 06/10/17 03:40 Baso # 0.1 X10^3/uL (0.0-0.1) 06/10/17 03:40 Absolute Nucleated RBC 0.1 /100WBC 06/10/17 03:40 INR Target Range - 06/05/17 17:53 INR 0.98 (0.8-1.3) 06/05/17 17:53 PTT 23.9 SECONDS (22.9-36.5) 06/05/17 17:53 PTT Comment - 06/05/17 17:53 Sodium 143 mmol/L (136-145) 06/10/17 03:40 Corrected Sodium TNP 06/10/17 03:40 Potassium 3.7 mmol/L (3.5-5.1) 06/10/17 03:40 Chloride 110 mmol/L (98-107) H 06/10/17 03:40 Carbon Dioxide 27.2 mmol/L (21-32) 06/10/17 03:40 BUN 17 mg/dL (7-18) 06/10/17 03:40 Creatinine 0.94 mg/dL (0.55-1.02) 06/10/17 03:40 Est GFR (MDRD) Af Amer > 60 (>60) 06/10/17 03:40 Est GFR (MDRD) Non-Af 60 (>60) 06/10/17 03:40 Glucose 84 mg/dL (65-99) 06/10/17 03:40 Calcium 7.2 mg/dL (8.5-10.1) L 06/10/17 03:40 Corrected Calcium 8.8 mg/dL (8.5-10.1) 06/10/17 03:40 Total Bilirubin 0.70 mg/dL (0.2-1.0) 06/10/17 03:40 AST 25 Units/L (15-37) 06/10/17 03:40 ALT 13 Units/L (12-78) 06/10/17 03:40 Alkaline Phosphatase 37 Units/L (46-116) L 06/10/17 03:40 Total Protein 5.1 g/dL (6.4-8.2) L 06/10/17 03:40 Albumin 2.0 g/dL (3.4-5.0) L 06/10/17 03:40 Globulin 3.1 g/dL (2.5-4.5) 06/10/17 03:40 Albumin/Globulin Ratio 0.6 Ratio (1.1-2.1) L 06/10/17 03:40 Specimen Type Catherized urine 06/05/17 23:31 Urine Color Yellow (YELLOW) 06/05/17 23:31 Urine Appearance Hazy (CLEAR) 06/05/17 23:31 Urine pH 6.0 (5.0 - 8.0) 06/05/17 23:31 Ur Specific [place] 1.015 (1.000-1.030) 06/05/17 23:31 Urine Protein 2+ (NEGATIVE) 06/05/17 23:31 Urine Glucose (UA) Negative (NEGATIVE) 06/05/17 23:31 Urine Ketones Negative (NEGATIVE) 06/05/17 23:31 Urine Occult Blood 1+ (NEGATIVE) 06/05/17 23:31 Urine Nitrite Positive (NEGATIVE) 06/05/17 23:31 Urine Bilirubin Negative (NEGATIVE) 06/05/17 23:31 Urine Urobilinogen Normal (NORMAL) 06/05/17 23:31 Ur Leukocyte Esterase Negative (NEGATIVE) 06/05/17 23:31 Urine RBC 0-3 /HPF (NEGATIVE) 06/05/17 23:31 Urine WBC 10-15 /HPF (NEGATIVE) 06/05/17 23:31 Ur Squamous Epith Cells Rare /HPF (NEGATIVE) 06/05/17 23:31 Urine Bacteria 3+ /HPF (NEGATIVE) 06/05/17 23:31 Ur Culture Indicated? Yes/culture set up 06/05/17 23:31 Staph aureus (PCR) Negative (NEGATIVE) 06/06/17 08:38 MRSA (PCR) Negative (NEGATIVE) 06/06/17 08:38 Blood Type AB NEGATIVE 06/05/17 17:53 Antibody Screen Negative 06/05/17 17:53 Crossmatch See Detail 06/05/17 17:53 - Plan (1) Trochanteric fracture of left femur Status: Acute Qualifiers: Encounter type: E Fracture type: F Open fracture type: O Fracture healing: F (2) Fx femur shaft-closed Status: Acute Qualifiers: Encounter type: E Fracture morphology: transverse Fracture alignment: displaced Laterality: left Fracture healing: F Plan: status SP gamma nail. doing well. Follow up as advised.
== END 2017-06-10 16:40 | DRG 481 ==
LOC: ER 17:35 → MED/SURG 20:56
PROVIDERS: ADMIT Internal Medicine; ATTEND Internal Medicine
PROC: 00HU33Z Insertion of Infusion Device into Spinal Canal, Percutaneous Approach (ICD-10-PCS; 2017-06-05)
PROC: 3E0R3BZ Introduction of Anesthetic Agent into Spinal Canal, Percutaneous Approach (ICD-10-PCS; 2017-06-05)
PROC: 3E0R3GC Introduction of Other Therapeutic Substance into Spinal Canal, Percutaneous Approach (ICD-10-PCS; 2017-06-05)
PROC: 0QS604Z Reposition Right Upper Femur with Internal Fixation Device, Open Approach (ICD-10-PCS; principal; 2017-06-07)
PROC: 30233N1 Transfusion of Nonautologous Red Blood Cells into Peripheral Vein, Percutaneous Approach (ICD-10-PCS; 2017-06-07)
PROC: 30233N1 Transfusion of Nonautologous Red Blood Cells into Peripheral Vein, Percutaneous Approach (ICD-10-PCS; 2017-06-07)
DX: S72.392A Other fracture of shaft of left femur, initial encounter for closed fracture (principal); W18.39XA Other fall on same level, initial encounter; I10 Essential (primary) hypertension; E03.8 Other specified hypothyroidism; N39.0 Urinary tract infection, site not specified; B96.1 Klebsiella pneumoniae [K. pneumoniae] as the cause of diseases classified elsewhere; Y92.096 Garden or yard of other non-institutional residence as the place of occurrence of the external cause
CPT/HCPCS: 36415; 36430; 62326; 71010; 71250; 72192; 73501; 76000; 80053; 81001; 85025; 85610; 85730; 86850; 86900; 86901; 86922; 87086; 87088; 87186; 87641; 93005; 93010; 94762; 96365; 96374; 99100; 99231; 99284; A4222; P9016; S0020; J0690; J0696; J1650; J2001; J2270; J2271; J2405; J3490

== ENCOUNTER → 2017-06-20 | Outpatient (CLI) | payer OTHER ==
[2017-06-10 16:35] VITALS: BP 136/61
--- NOTE | 2017-06-20 14:45 | RAD ---
HISTORY: Follow up fracture Study: AP and lateral left femur Comparison: June 06, 2017 Findings: The left hip joint is intact. The patient is status post open reduction internal fixation of a femora l neck fracture with a compression screw and short intra medullary elizabeth. Position alignment is anatomi c. No obvious healing as yet. Remainder the femur is intact. IMPRESSION: As above Reported By:
== END | disposition home or self-care (01) ==
LOC: RAD 11:58
PROVIDERS: ATTEND Internal Medicine
DX: S72.8X2A Other fracture of left femur, initial encounter for closed fracture (principal); X58.XXXA Exposure to other specified factors, initial encounter; B37.0 Candidal stomatitis; G25.81 Restless legs syndrome; I10 Essential (primary) hypertension; E03.8 Other specified hypothyroidism; N39.0 Urinary tract infection, site not specified; F41.8 Other specified anxiety disorders; Z98.890 Other specified postprocedural states
CPT/HCPCS: 73552

== ENCOUNTER → 2017-07-16 | Outpatient (CLI) | payer OTHER ==
--- NOTE | 2017-07-17 08:21 | RAD ---
HISTORY: Followup left hip surgical repair Study: Two views left hip Comparison: 06/06/2017 Findings/impression: Trochanteric femoral nail system is again seen in the left femur with interval sliding of the femoral neck screw and settling of the fracture fragments. There is diffuse osteopenia and degenerative gann ges of the pelvis. Portions of the sacrum and coccyx are obscured by bowel gas. Reported By:
== END | disposition home or self-care (01) ==
LOC: RAD 10:16
PROVIDERS: ATTEND Internal Medicine
DX: M85.88 Other specified disorders of bone density and structure, other site (principal); Z42.8 Encounter for other plastic and reconstructive surgery following medical procedure or healed injury
CPT/HCPCS: 73501

== ENCOUNTER → 2017-08-01 | Outpatient (CLI) | payer OTHER ==
--- NOTE | 2017-08-03 07:38 | RAD ---
HISTORY: ORIF status post femoral fracture Study: Two views left hip Comparison: 07/16/2017 Findings: ORIF of the left hip is observed with anatomic alignment maintained. No acute cortical disruption are periprosthetic fracture can be identified. Impression: 1. Expected postop changes of left hip without acute abnormality identified. Reported By:
== END | disposition home or self-care (01) ==
LOC: RAD 10:57
PROVIDERS: ATTEND Orthopaedic Surgery
DX: S72.102D Unspecified trochanteric fracture of left femur, subsequent encounter for closed fracture with routine healing (principal); X58.XXXD Exposure to other specified factors, subsequent encounter; Z98.890 Other specified postprocedural states
CPT/HCPCS: 73501

== ENCOUNTER 2017-08-16 19:08 | Inpatient (IN) | payer OTHER ==
[2017-08-16 19:34] VITALS: BMI 18.8
--- NOTE | 2017-08-16 19:38 | DR.EXTPAIN ---
HPI - Time seen Time seen: 19:20 - HPI Comment HPI Comment: fall, right wrist pain - Complaint/Symptoms Chief Complaint Doctor Comments: She c/o right wrist pain. This occurred this evening at home. She was getting ready for bed and got tangled in sheets. She denies preceeding light headedness, dizziness or palpitations. She denies LOC Self Treatment fo Chief Complaint: none - Nurses notes reviewed Nurses Notes Review: Yes - Source History Provided: Patient - Location Right Forearm Mechanism: Fall, FOOSH Circumstance: Fall Description: Bony Tenderness, Deformity, Swelling, Tender Able to Bear Weight: N/A Able to Move Injured Body Part: Yes Pain Occurs: With Use Distal Function Deficit of Injured Body Part: Normal - Context History of: Hip Operation - Associated signs and symptoms Associated Signs and Symptoms: Swelling PMH - PMH Past Medical History: GERD, Hypertension, Hyperthyroidism Past Medical History Comment: Left hip fracture Past Surgical History: Yes Surgical History: Hysterectomy, Ortho Surgery (ORIF Lt. Hip (? Joint replacement ) in past 1-2 months) - Social History Do you use any recreational Drugs:: No ROS - Review of Systems Constitutional: No Symptoms Reported Eyes: No Symptoms Reported ENTM: No Symptoms Reported Respiratoy: No Symptoms Reported Cardiovascular: No Symptoms Reported Gastrointestinal/Abdominal: No Symptoms Reported Genitourinary: No Symptoms Reported Neurological: No Symptoms Reported Musculoskeletal: See HPI, Wrist (right wrist) Integumentary: No Symptoms Reported Hematologic/Lymphatic: No Symptoms Reported Endocrine: No Symptoms Reported Psychiatric: No Symptoms Reported All Other Systems: Reviewed and Negative PE - Vital Signs Vitals: Blood Pressure [Left Arm] 127/59 Blood Pressure [Right Arm] 136/61 Blood Pressure 136/61 - General Limitations: No Limitations General Appearance: Alert, In No Apparent Distress - Head Head Exam: Normal Inspection - Eyes Eye exam: Normal Appearance, PERRL, EOMI - ENT ENT Exam: Normal Exam - Neck Neck Exam: Normal Inspection - Chest Chest Inspection: Normal Inspection - Respiratory Respiratory Exam: Normal Lung Sounds Bilat Respiratory Exam: Bilateral Clear to Auscultation - Cardiovascular Cardiovascular Exam: Regular Rate, Normal Rhythm - Abdominal Exam Abdominal Exam: Normal Inspection, Normal Bowel Sounds, Soft - Upper Extremities Shoulder Exam: Normal Inspection, Full ROM Arm Exam: Normal Inspection, Full ROM Elbow Exam: Normal Inspection, Full ROM Forearm Exam: Normal Inspection, Full ROM Hand Exam: Tenderness (proximal phalanges on right), Swelling (proximal phalanges) Neuromotor Exam: Normal Exam Neurosensory Exam: Normal Exam - Lower Extremities Hip/Pelvis Exam: Normal Inspection, Full ROM Upper Leg Exam: Normal Inspection, Full ROM Knee Exam: Normal Inspection, Full ROM Lower Leg Exam: Normal Inspection, Full ROM Foot/Toe Exam: Normal Inspection, Full ROM Neurovascular/Tendon Exam: Normal Capillary Refill - Back Back Exam: Normal Inspection - Skin Skin Exam: Warm, Dry, Intact MDM - Differential Diagnosis Differential Diagnosis: Fracture, Hematoma Course - Reevaluation 1st: Improved - Education/Counseling Education/Counseling: Patient, Family Educated On: Treatment, Diagnosis, Prognosis, Needs for Follow Up ROR - XRAY XRAY Interpreted by: Self (displaced fracture of right radius) - Diagnosis Discharge Problem: Fracture of wrist, closed Discharge Problem: (Ruled Out): Fracture of wrist - Discharge Plan Disposition: 09 ADMITTED INPATIENT Condition: Stable - Follow ups/Referrals - Instructions
--- NOTE | 2017-08-16 19:56 | RAD ---
Three views of the right wrist Indication: Trauma. Conclusion: There is intra-articular fracture of the distal right radius with dorsal angulation and r adial distraction of distal fracture fragment. The radiocarpal joint is maintained. There is fracture of the ulnar styloid as well. Reported By:
[2017-08-17] MEDS: TORADOL 15 MG VIAL IVP PRN ×3 (00:29→22:17)
[2017-08-17] MEDS: NS 1000 ML 1,000 ML IV SCH ×3 (00:29→13:30)
[2017-08-17] MEDS ORDERED: LEVAQUIN TAB 500 MG ONE (01:55)
[2017-08-17 06:21] LABS: BASOPHILS % (AUTO) 0.4 % (0.2-1.0); EOSINOPHILS % (AUTO) 0.2 % (0.9-2.9); HEMATOCRIT 32.5 % (36.0-47.0); HEMOGLOBIN 11.2 g/dL (12.0-16.0); LYMPHOCYTES # (AUTO) 1.3 X10^3/uL (1.3-2.9); LYMPHOCYTES % (AUTO) 18.3 % (21.0-51.0); MEAN CORPUSCULAR HEMOGLOBIN 32.1 pg (27.0-34.0); MEAN CORPUSCULAR HGB CONC 34.4 g/dL (33.0-35.0); MEAN CORPUSCULAR VOLUME 93.1 fL (80.0-100.0); MEAN PLATELET VOLUME 10.3 fL (7.4-11.0); MONOCYTES # (AUTO) 0.4 x10^3/uL (0.3-0.8); NEUTROPHILS # (AUTO) 5.4 x10^3/uL (2.2-4.8); NEUTROPHILS % (AUTO) 75.1 % (42.0-75.0); PLATELET COUNT 141 X10^3/uL (150.0-450.0); RED BLOOD COUNT 3.49 X10^6/uL (3.5-5.4); RED CELL DISTRIBUTION WIDTH 14.8 % (11.6-16.5); WHITE BLOOD COUNT 7.2 X10^3/uL (3.6-10.0)
[2017-08-17 06:41] LABS: ALANINE AMINOTRANSFERASE 10 Units/L (12-78); ALKALINE PHOSPHATASE 75 Units/L (46-116); ASPARTATE AMINO TRANSFERASE 20 Units/L (15-37); BLOOD UREA NITROGEN 74 mg/dL (7-18); CALCIUM 8.8 mg/dL (8.5-10.1); CARBON DIOXIDE 25.9 mmol/L (21-32); CHLORIDE 105 mmol/L (98-107); COR CA(FOR HYPOALB) 9.6 mg/dL (8.5-10.1); CREATININE 2.41 mg/dL (0.55-1.02); SODIUM 140 mmol/L (136-145); TOTAL PROTEIN 6.4 g/dL (6.4-8.2); eGFR BLACK RACES 24 (>60); eGFR NON BLACK RACES 20 (>60)
[2017-08-17] MEDS ORDERED: DIAZEPAM 5 MG PO PRN (09:40)
[2017-08-17] MEDS ORDERED: VALIUM PO PRN (10:00)
[2017-08-17] MEDS ORDERED: SYNTHROID 50 mcg TAB PO SCH (10:00)
[2017-08-17] MEDS: HYDROCHLOROTHIAZIDE 12.5 MG CAP PO SCH (10:17)
[2017-08-17] MEDS: LOTENSIN TAB 10 MG PO SCH (10:17)
[2017-08-17] MEDS: SYNTHROID 50 mcg TAB PO SCH (10:17)
[2017-08-17] MEDS: TYLENOL #3 TAB (W/CODEINE) PO PRN (18:31)
[2017-08-18] MEDS: NS 1000 ML 1,000 ML IV SCH ×3 (02:41→14:50)
[2017-08-18] MEDS: ZOFRAN INJ 4 MG VIAL IVP PRN (05:19)
[2017-08-18 05:43] LABS: BASOPHILS % (AUTO) 0.4 % (0.2-1.0); HEMATOCRIT 32.4 % (36.0-47.0); HEMOGLOBIN 11.1 g/dL (12.0-16.0); LYMPHOCYTES # (AUTO) 0.6 X10^3/uL (1.3-2.9); LYMPHOCYTES % (AUTO) 7.2 % (21.0-51.0); MEAN CORPUSCULAR HEMOGLOBIN 31.3 pg (27.0-34.0); MEAN CORPUSCULAR HGB CONC 34.3 g/dL (33.0-35.0); MEAN CORPUSCULAR VOLUME 91.3 fL (80.0-100.0); MEAN PLATELET VOLUME 9.9 fL (7.4-11.0); MONOCYTES # (AUTO) 0.6 x10^3/uL (0.3-0.8); MONOCYTES % (AUTO) 6.7 % (0.0-13.0); NEUTROPHILS # (AUTO) 7.2 x10^3/uL (2.2-4.8); NEUTROPHILS % (AUTO) 85.7 % (42.0-75.0); PLATELET COUNT 126 X10^3/uL (150.0-450.0); RED BLOOD COUNT 3.55 X10^6/uL (3.5-5.4); RED CELL DISTRIBUTION WIDTH 14.7 % (11.6-16.5); WHITE BLOOD COUNT 8.4 X10^3/uL (3.6-10.0)
[2017-08-18 06:03] LABS: ALANINE AMINOTRANSFERASE 11 Units/L (12-78); ALBUMIN 2.6 g/dL (3.4-5.0); ALKALINE PHOSPHATASE 67 Units/L (46-116); ASPARTATE AMINO TRANSFERASE 15 Units/L (15-37); BLOOD UREA NITROGEN 57 mg/dL (7-18); CALCIUM 8.2 mg/dL (8.5-10.1); CARBON DIOXIDE 24.2 mmol/L (21-32); CHLORIDE 111 mmol/L (98-107); COR CA(FOR HYPOALB) 9.3 mg/dL (8.5-10.1); SODIUM 141 mmol/L (136-145); TOTAL PROTEIN 5.9 g/dL (6.4-8.2); eGFR BLACK RACES 37 (>60); eGFR NON BLACK RACES 30 (>60)
[2017-08-18] MEDS ORDERED: COLACE CAP 100 MG PO PRN (06:43)
[2017-08-18] MEDS: SYNTHROID 50 mcg TAB PO SCH (08:40)
[2017-08-18] MEDS: LOTENSIN TAB 10 MG PO SCH (08:40)
[2017-08-18] MEDS: HYDROCHLOROTHIAZIDE 12.5 MG CAP PO SCH (08:40)
[2017-08-18] MEDS: TYLENOL #3 TAB (W/CODEINE) PO PRN (08:40)
[2017-08-18] MEDS ORDERED: BENAZEPRIL PO SCH (09:00)
[2017-08-18] MEDS ORDERED: [UNRECOGNIZED DRUG - OTHER] PO SCH (09:00)
[2017-08-18] MEDS ORDERED: HYDROCHLOROTHIAZIDE PO SCH (09:00)
[2017-08-18] MEDS: MORPHINE SULFATE INJ 2 MG INJ IVP PRN ×2 (15:27→20:31)
[2017-08-19 05:30] LABS: BASOPHILS % (AUTO) 0.4 % (0.2-1.0); HEMATOCRIT 31.9 % (36.0-47.0); HEMOGLOBIN 10.9 g/dL (12.0-16.0); LYMPHOCYTES % (AUTO) 9.4 % (21.0-51.0); MEAN CORPUSCULAR HEMOGLOBIN 31.9 pg (27.0-34.0); MEAN CORPUSCULAR HGB CONC 34.1 g/dL (33.0-35.0); MEAN CORPUSCULAR VOLUME 93.4 fL (80.0-100.0); MEAN PLATELET VOLUME 10.2 fL (7.4-11.0); MONOCYTES # (AUTO) 0.6 x10^3/uL (0.3-0.8); MONOCYTES % (AUTO) 5.7 % (0.0-13.0); NEUTROPHILS # (AUTO) 8.6 x10^3/uL (2.2-4.8); NEUTROPHILS % (AUTO) 84.5 % (42.0-75.0); PLATELET COUNT 135 X10^3/uL (150.0-450.0); RED BLOOD COUNT 3.41 X10^6/uL (3.5-5.4); RED CELL DISTRIBUTION WIDTH 14.6 % (11.6-16.5); WHITE BLOOD COUNT 10.2 X10^3/uL (3.6-10.0)
[2017-08-19 05:32] LABS: ALANINE AMINOTRANSFERASE 8 Units/L (12-78); ALBUMIN 2.4 g/dL (3.4-5.0); ALKALINE PHOSPHATASE 62 Units/L (46-116); ASPARTATE AMINO TRANSFERASE 13 Units/L (15-37); BLOOD UREA NITROGEN 37 mg/dL (7-18); CALCIUM 8.2 mg/dL (8.5-10.1); CARBON DIOXIDE 21.4 mmol/L (21-32); CHLORIDE 112 mmol/L (98-107); COR CA(FOR HYPOALB) 9.5 mg/dL (8.5-10.1); SODIUM 144 mmol/L (136-145); TOTAL PROTEIN 5.6 g/dL (6.4-8.2); eGFR BLACK RACES 50 (>60); eGFR NON BLACK RACES 41 (>60)
[2017-08-19] MEDS: SYNTHROID 50 mcg TAB PO SCH (06:08)
[2017-08-19] MEDS: MORPHINE SULFATE INJ 2 MG INJ IVP PRN ×3 (06:08→22:46)
[2017-08-19] MEDS: ZOFRAN INJ 4 MG VIAL IVP PRN ×3 (06:09→22:47)
[2017-08-19] MEDS: D5 LR 1000 ML 1,000 ML IV ONE ×2 (08:00→08:28)
[2017-08-19] MEDS ORDERED: MARCAINE 0.25% INJ ONE (08:03)
[2017-08-19] MEDS ORDERED: ANCEF VIAL 1 GM ONE (08:05)
[2017-08-19] MEDS ORDERED: NAROPIN 0.75% EPI ONE (08:18)
[2017-08-19] MEDS ORDERED: XYLOCAINE 1 % (PLAIN) ONE (08:18)
[2017-08-19] MEDS: NS 50 ML IV 50 ML IV ONE ×2 (08:28→08:50)
[2017-08-19] MEDS ORDERED: FENTANYL INJ 100 mcg ONE (08:47)
[2017-08-19] MEDS ORDERED: KETALAR ONE (08:48)
[2017-08-19] MEDS: NS 1000 ML 1,000 ML IV SCH ×3 (08:56→20:18)
[2017-08-19] MEDS ORDERED: NS IRRIGATION 1000 ML 1,000 ML with BACITRACIN VIAL 50,000 UNT IR ONE ×2 (09:15)
[2017-08-19] MEDS ORDERED: BACTROBAN OINT ONE (10:28)
[2017-08-19] MEDS ORDERED: ZOFRAN INJ 4 MG VIAL IVP PRN (10:59)
[2017-08-19] MEDS ORDERED: REGLAN INJ 10 MG VIAL IVP PRN (10:59)
[2017-08-19] MEDS ORDERED: PHENERGAN INJ 25 MG IVP PRN (10:59)
[2017-08-19] MEDS ORDERED: BENADRYL INJ 50 MG VIAL IVP PRN (10:59)
[2017-08-19] MEDS ORDERED: DILAUDID INJ IVP PRN (10:59)
--- NOTE | 2017-08-19 12:18 | DR.CONSULT ---
Consult - Consultation for Day of: Date: 08/17/17 (thanks for the consult) - Chief Complaint Chief Complaint: rt wrist fracture post fall. - Allergies Allergies/Adverse Reactions: Allergies Allergy/AdvReac Type Severity Reaction Status Date / Time iodine AdvReac Verified 08/16/17 19:34 methylprednisolone AdvReac Verified 08/16/17 19:34 [From Medrol] - History of Present Illness History of Present Illness: fall and fractured the right wrist. - Past Medical History Past Medical History: GERD, Hypertension, Hyperthyroidism - Past Surgical History Surgical History: Hysterectomy, Ortho Surgery (ORIF Lt. Hip (? Joint replacement ) in past 1-2 months) - Social History Does patient currently use any type of tobacco product: No Have you used tobacco products in the last 12 months: No Type of Tobacco Use: None Does any household member use tobacco: No Alcohol Use: None - Review of Systems Musculoskeletal: See HPI - Physical Exam Vital Signs: Temperature 97.5 F Pulse Rate [Apical] 53 Pulse Rate 69 Respiratory Rate 17 Blood Pressure [Left Arm] 130/58 Blood Pressure [Right Arm] 101/50 Blood Pressure 155/70 O2 Sat by Pulse Oximetry 94 Musculoskeletal: Right, Wrist, Swelling, Tender, Deformity - Plan Plan: ORIF Saturday.
[2017-08-19] MEDS: LOTENSIN TAB 10 MG PO SCH (12:43)
[2017-08-19] MEDS: HYDROCHLOROTHIAZIDE 12.5 MG CAP PO SCH (12:44)
--- NOTE | 2017-08-19 14:47 | RAD ---
HISTORY: Postop fracture Study: Right wrist AP and lateral Comparison: 08/16/2017 Findings: The previously noted distal radial fracture has undergone open reduction internal fixation with a la te and multiple screws. Position and alignment is nearly anatomic. The carpal bones are intact. The u lnar styloid fracture is unchanged. IMPRESSION: As above Reported By:
[2017-08-19] MEDS ORDERED: DIPRIVAN VIAL ONE (15:29)
[2017-08-19] MEDS ORDERED: XYLOCAINE 2 % (PLAIN) ONE (15:29)
[2017-08-19] MEDS ORDERED: VERSED ONE (15:29)
[2017-08-19] MEDS ORDERED: ZOFRAN INJ 4 MG VIAL ONE (15:29)
[2017-08-19] MEDS: PERCOCET TAB 5/325 MG PO PRN (20:19)
[2017-08-20 05:27] LABS: BLOOD UREA NITROGEN 23 mg/dL (7-18); CALCIUM 8.2 mg/dL (8.5-10.1); CARBON DIOXIDE 23.6 mmol/L (21-32); CHLORIDE 111 mmol/L (98-107); CREATININE 1.25 mg/dL (0.55-1.02); SODIUM 144 mmol/L (136-145); eGFR BLACK RACES 52 (>60); eGFR NON BLACK RACES 43 (>60)
[2017-08-20 05:34] LABS: BASOPHILS % (AUTO) 0.3 % (0.2-1.0); EOSINOPHILS % (AUTO) 0.1 % (0.9-2.9); HEMATOCRIT 34.4 % (36.0-47.0); HEMOGLOBIN 11.3 g/dL (12.0-16.0); LYMPHOCYTES # (AUTO) 1.1 X10^3/uL (1.3-2.9); LYMPHOCYTES % (AUTO) 9.5 % (21.0-51.0); MEAN CORPUSCULAR HEMOGLOBIN 30.7 pg (27.0-34.0); MEAN CORPUSCULAR VOLUME 93.2 fL (80.0-100.0); MEAN PLATELET VOLUME 10.3 fL (7.4-11.0); MONOCYTES # (AUTO) 0.6 x10^3/uL (0.3-0.8); MONOCYTES % (AUTO) 5.2 % (0.0-13.0); NEUTROPHILS % (AUTO) 84.9 % (42.0-75.0); PLATELET COUNT 132 X10^3/uL (150.0-450.0); RED BLOOD COUNT 3.69 X10^6/uL (3.5-5.4); RED CELL DISTRIBUTION WIDTH 14.4 % (11.6-16.5); WHITE BLOOD COUNT 11.7 X10^3/uL (3.6-10.0)
[2017-08-20] MEDS: SYNTHROID 50 mcg TAB PO SCH (06:02)
[2017-08-20] MEDS: MORPHINE SULFATE INJ 2 MG INJ IVP PRN (06:06)
[2017-08-20] MEDS: NS 1000 ML 1,000 ML IV SCH ×3 (06:21→21:30)
[2017-08-20] MEDS: LOTENSIN TAB 10 MG PO SCH (08:23)
[2017-08-20] MEDS: HYDROCHLOROTHIAZIDE 12.5 MG CAP PO SCH (08:23)
[2017-08-20] MEDS: PERCOCET TAB 5/325 MG PO PRN ×2 (08:24→12:30)
[2017-08-20] MEDS ORDERED: PHARMACY CONSULT - DOSE _____ XX SCH (10:00)
[2017-08-20] MEDS: TEFLARO 400 MG in NS 50 ML IV 50 ML IV SCH ×2 (11:37→21:26)
[2017-08-20] MEDS: ZOFRAN INJ 4 MG VIAL IVP PRN (12:45)
--- NOTE | 2017-08-20 13:00 | RAD ---
HISTORY: Fever Study: Chest AP portable Comparison: 06/05/2017 Findings: The heart is enlarged. No congestive heart failure is noted. The aorta is calcified and ectatic. The lung victoria are clear. No pleural effusions are identified. The bony thorax is unremarkable with the exception of thoracic spinal osteopenia with compression fractures previously treated with kyphoplast y. IMPRESSION: Cardiomegaly without congestive heart failure Lungs clear Reported By:
--- NOTE | 2017-08-20 16:42 | PCM.PROG ---
Progress Note - Progress Note for Day of Date: 08/20/17 (POD 1) - Subjective Subjective: Doing well. no issues with pain. - Past Medical Family Social History Allergies: Allergies iodine Adverse Reaction (Verified 08/16/17 19:34) methylprednisolone [From Medrol] Adverse Reaction (Verified 08/16/17 19:34) - Vital Signs and I&O's Vital Signs: Temperature 98.6 F Pulse Rate [Apical] 63 Pulse Rate 66 Respiratory Rate 18 Blood Pressure [Left Arm] 144/92 Blood Pressure [Right Arm] 101/50 Blood Pressure 155/70 O2 Sat by Pulse Oximetry 92 Intake and Output: Intake & Output 08/18/17 08/19/17 08/20/17 08/21/17 11:59 11:59 11:59 11:59 Intake Total 2401 2085 1970 940 Output Total 500 1150 800 400 Balance 9187 605 9397 540 - Physical Exam Musculoskeletal: Right, Wrist, Swelling, Tender, Deformity Mood Description: Calm Speech Pattern: Clear, Appropriate - Laboratory and Diagnostics Result Diagrams: 08/20/17 04:50 08/20/17 04:50 Labs: Laboratory WBC 11.7 X10^3/uL (3.6-10.0) H 08/20/17 04:50 RBC 3.69 X10^6/uL (3.5-5.4) 08/20/17 04:50 Hgb 11.3 g/dL (12.0-16.0) L 08/20/17 04:50 Hct 34.4 % (36.0-47.0) L 08/20/17 04:50 MCV 93.2 fL (80.0-100.0) 08/20/17 04:50 MCH 30.7 pg (27.0-34.0) 08/20/17 04:50 MCHC 33.0 g/dL (33.0-35.0) 08/20/17 04:50 RDW 14.4 % (11.6-16.5) 08/20/17 04:50 Plt Count 132 X10^3/uL (150.0-450.0) L 08/20/17 04:50 MPV 10.3 fL (7.4-11.0) 08/20/17 04:50 Neut % 84.9 % (42.0-75.0) H 08/20/17 04:50 Lymph % 9.5 % (21.0-51.0) L 08/20/17 04:50 Winston % 5.2 % (0.0-13.0) 08/20/17 04:50 Eos % 0.1 % (0.9-2.9) L 08/20/17 04:50 Baso % 0.3 % (0.2-1.0) 08/20/17 04:50 Neut # 10.0 x10^3/uL (2.2-4.8) H 08/20/17 04:50 Lymph # 1.1 X10^3/uL (1.3-2.9) L 08/20/17 04:50 Winston # 0.6 x10^3/uL (0.3-0.8) 08/20/17 04:50 Eos # 0.0 x10^3/uL (0.0-0.2) 08/20/17 04:50 Baso # 0.0 X10^3/uL (0.0-0.1) 08/20/17 04:50 Absolute Nucleated RBC 0.0 /100WBC 08/20/17 04:50 Sodium 144 mmol/L (136-145) 08/20/17 04:50 Corrected Sodium TNP 08/20/17 04:50 Potassium 3.7 mmol/L (3.5-5.1) 08/20/17 04:50 Chloride 111 mmol/L (98-107) H 08/20/17 04:50 Carbon Dioxide 23.6 mmol/L (21-32) 08/20/17 04:50 BUN 23 mg/dL (7-18) H 08/20/17 04:50 Creatinine 1.25 mg/dL (0.55-1.02) H 08/20/17 04:50 Est GFR (MDRD) Af Amer 52 (>60) L 08/20/17 04:50 Est GFR (MDRD) Non-Af 43 (>60) L 08/20/17 04:50 Glucose 83 mg/dL (65-99) 08/20/17 04:50 Calcium 8.2 mg/dL (8.5-10.1) L 08/20/17 04:50 Corrected Calcium 9.5 mg/dL (8.5-10.1) 08/19/17 04:55 Total Bilirubin 0.40 mg/dL (0.2-1.0) 08/19/17 04:55 AST 13 Units/L (15-37) L 08/19/17 04:55 ALT 8 Units/L (12-78) L 08/19/17 04:55 Alkaline Phosphatase 62 Units/L (46-116) 08/19/17 04:55 Total Protein 5.6 g/dL (6.4-8.2) L 08/19/17 04:55 Albumin 2.4 g/dL (3.4-5.0) L 08/19/17 04:55 Globulin 3.2 g/dL (2.5-4.5) 08/19/17 04:55 Albumin/Globulin Ratio 0.8 Ratio (1.1-2.1) L 08/19/17 04:55 - Plan (1) Fracture of wrist, closed Status: Acute Plan: PT/ OT FOR THE LEFT HIP ONLY. continue splint till further dvise. regular dressing change every 5 days. Follow up at 3 weeks with X RAys wrsit. no PT/OT for the wrsit till then.
[2017-08-21 05:51] LABS: BASOPHILS % (AUTO) 0.3 % (0.2-1.0); HEMATOCRIT 32.7 % (36.0-47.0); HEMOGLOBIN 11.2 g/dL (12.0-16.0); MEAN CORPUSCULAR HEMOGLOBIN 31.7 pg (27.0-34.0); MEAN CORPUSCULAR HGB CONC 34.3 g/dL (33.0-35.0); MEAN CORPUSCULAR VOLUME 92.5 fL (80.0-100.0); MEAN PLATELET VOLUME 10.9 fL (7.4-11.0); MONOCYTES # (AUTO) 0.5 x10^3/uL (0.3-0.8); MONOCYTES % (AUTO) 3.7 % (0.0-13.0); NEUTROPHILS # (AUTO) 12.6 x10^3/uL (2.2-4.8); PLATELET COUNT 157 X10^3/uL (150.0-450.0); RED BLOOD COUNT 3.54 X10^6/uL (3.5-5.4); RED CELL DISTRIBUTION WIDTH 14.8 % (11.6-16.5); WHITE BLOOD COUNT 14.1 X10^3/uL (3.6-10.0)
[2017-08-21 06:16] LABS: BLOOD UREA NITROGEN 17 mg/dL (7-18); CALCIUM 8.2 mg/dL (8.5-10.1); CARBON DIOXIDE 18.2 mmol/L (21-32); CHLORIDE 110 mmol/L (98-107); CREATININE 1.13 mg/dL (0.55-1.02); SODIUM 144 mmol/L (136-145); eGFR BLACK RACES 59 (>60); eGFR NON BLACK RACES 48 (>60)
[2017-08-21] MEDS: SYNTHROID 50 mcg TAB PO SCH (06:20)
[2017-08-21] MEDS: HYDROCHLOROTHIAZIDE 12.5 MG CAP PO SCH (09:05)
[2017-08-21] MEDS: TEFLARO 400 MG in NS 50 ML IV 50 ML IV SCH ×2 (09:06→21:02)
[2017-08-21] MEDS: LOTENSIN TAB 10 MG PO SCH (09:06)
[2017-08-21] MEDS: ZOFRAN INJ 4 MG VIAL IVP PRN (09:07)
[2017-08-21] MEDS ORDERED: TYLENOL #3 TAB (W/CODEINE) PO PRN (09:31)
[2017-08-21] MEDS: PEPCID 20 MG IV PREMIX* 20 MG/50 ML BAG IV SCH ×2 (10:38→21:02)
[2017-08-21] MEDS: NS 1000 ML 1,000 ML IV SCH ×2 (10:38→11:48)
--- NOTE | 2017-08-21 14:34 | RAD ---
HISTORY: Abdominal pain Study: KUB Comparison: None Findings: Evaluation of the abdomen demonstrates a normal bowel gas pattern. No pathological soft tissue mass or calcification can be observed. The bony structures are grossly intact. IMPRESSION: 1. No evidence for acute abdominal pathology identified. Reported By:
--- NOTE | 2017-08-21 16:33 | US ---
History: Right upper quadrant pain Study: Ultrasound of the right upper quadrant of the abdomen Findings: The gallbladder is normal in size without wall thickening or stone or sludge. The common he patic duct measures 3.8 mm diameter. The visualized liver is unremarkable. The right kidney measures 6.7 x 3.5 x 3.8 cm with thinned cortex but no hydronephrosis. There is incr eased echogenicity of the thinned right renal cortex. The pancreas is obscured. There is no ascites. Impression: 1. Negative ultrasound of the gallbladder 2. Right renal atrophy Reported By:
[2017-08-22] MEDS: NS 1000 ML 1,000 ML IV SCH ×2 (04:44)
[2017-08-22 05:23] LABS: BASOPHILS % (AUTO) 0.3 % (0.2-1.0); EOSINOPHILS % (AUTO) 0.1 % (0.9-2.9); HEMATOCRIT 33.9 % (36.0-47.0); HEMOGLOBIN 11.4 g/dL (12.0-16.0); LYMPHOCYTES % (AUTO) 7.8 % (21.0-51.0); MEAN CORPUSCULAR HEMOGLOBIN 30.9 pg (27.0-34.0); MEAN CORPUSCULAR HGB CONC 33.8 g/dL (33.0-35.0); MEAN CORPUSCULAR VOLUME 91.7 fL (80.0-100.0); MEAN PLATELET VOLUME 10.7 fL (7.4-11.0); MONOCYTES # (AUTO) 0.5 x10^3/uL (0.3-0.8); MONOCYTES % (AUTO) 4.4 % (0.0-13.0); NEUTROPHILS # (AUTO) 10.7 x10^3/uL (2.2-4.8); NEUTROPHILS % (AUTO) 87.4 % (42.0-75.0); PLATELET COUNT 192 X10^3/uL (150.0-450.0); RED BLOOD COUNT 3.69 X10^6/uL (3.5-5.4); RED CELL DISTRIBUTION WIDTH 14.3 % (11.6-16.5); WHITE BLOOD COUNT 12.2 X10^3/uL (3.6-10.0)
[2017-08-22 05:34] LABS: AMYLASE 19 Units/L (25-115); BLOOD UREA NITROGEN 17 mg/dL (7-18); CALCIUM 8.2 mg/dL (8.5-10.1); CARBON DIOXIDE 19.7 mmol/L (21-32); CHLORIDE 110 mmol/L (98-107); CREATININE 1.07 mg/dL (0.55-1.02); LIPASE 94 Units/L (73-393); SODIUM 144 mmol/L (136-145); eGFR BLACK RACES > 60 (>60); eGFR NON BLACK RACES 51 (>60)
[2017-08-22] MEDS ORDERED: K-LYTE EFFERVESCENT PO PRN (06:00)
[2017-08-22 06:45] LABS: BAND NEUTROPHILS % 3 % (0-10)
[2017-08-22 06:48] LABS: PLATELET MORPHOLOGY COMMENT NORMAL (NORMAL)
[2017-08-22] MEDS ORDERED: MAG-OX TAB PO PRN (06:57)
[2017-08-22] MEDS: PEPCID 20 MG IV PREMIX* 20 MG/50 ML BAG IV SCH ×2 (09:24→21:33)
[2017-08-22] MEDS: TEFLARO 400 MG in NS 50 ML IV 50 ML IV SCH ×2 (09:24→21:52)
[2017-08-22] MEDS: SYNTHROID 50 mcg TAB PO SCH (09:44)
[2017-08-22] MEDS: LOTENSIN TAB 10 MG PO SCH (09:44)
[2017-08-22] MEDS: HYDROCHLOROTHIAZIDE 12.5 MG CAP PO SCH (09:44)
[2017-08-22] MEDS ORDERED: NS 100 ML IV 100 ML IV ONE (21:43)
[2017-08-22] MEDS ORDERED: TEFLARO IV ONE (21:43)
[2017-08-23] MEDS: NS 1000 ML 1,000 ML IV SCH (03:28)
[2017-08-23 06:04] LABS: BASOPHILS % (AUTO) 0.5 % (0.2-1.0); EOSINOPHILS % (AUTO) 0.3 % (0.9-2.9); HEMATOCRIT 33.6 % (36.0-47.0); HEMOGLOBIN 11.5 g/dL (12.0-16.0); LYMPHOCYTES # (AUTO) 1.1 X10^3/uL (1.3-2.9); LYMPHOCYTES % (AUTO) 11.6 % (21.0-51.0); MEAN CORPUSCULAR HEMOGLOBIN 31.1 pg (27.0-34.0); MEAN CORPUSCULAR HGB CONC 34.4 g/dL (33.0-35.0); MEAN CORPUSCULAR VOLUME 90.6 fL (80.0-100.0); MEAN PLATELET VOLUME 10.4 fL (7.4-11.0); MONOCYTES # (AUTO) 0.5 x10^3/uL (0.3-0.8); MONOCYTES % (AUTO) 5.7 % (0.0-13.0); NEUTROPHILS # (AUTO) 7.6 x10^3/uL (2.2-4.8); NEUTROPHILS % (AUTO) 81.9 % (42.0-75.0); PLATELET COUNT 194 X10^3/uL (150.0-450.0); RED BLOOD COUNT 3.71 X10^6/uL (3.5-5.4); RED CELL DISTRIBUTION WIDTH 14.1 % (11.6-16.5); WHITE BLOOD COUNT 9.3 X10^3/uL (3.6-10.0)
[2017-08-23 06:43] LABS: BAND NEUTROPHILS % 4 % (0-10); PLATELET MORPHOLOGY COMMENT NORMAL (NORMAL)
[2017-08-23 06:45] LABS: ALANINE AMINOTRANSFERASE 8 Units/L (12-78); ALBUMIN 2.2 g/dL (3.4-5.0); ALKALINE PHOSPHATASE 53 Units/L (46-116); ASPARTATE AMINO TRANSFERASE 16 Units/L (15-37); BLOOD UREA NITROGEN 14 mg/dL (7-18); CALCIUM 8.3 mg/dL (8.5-10.1); CARBON DIOXIDE 24.1 mmol/L (21-32); CHLORIDE 109 mmol/L (98-107); COR CA(FOR HYPOALB) 9.7 mg/dL (8.5-10.1); CREATININE 0.99 mg/dL (0.55-1.02); MAGNESIUM 1.6 mg/dL (1.7-2.9); SODIUM 143 mmol/L (136-145); TOTAL PROTEIN 5.5 g/dL (6.4-8.2); eGFR BLACK RACES > 60 (>60); eGFR NON BLACK RACES 56 (>60)
[2017-08-23] MEDS: SYNTHROID 50 mcg TAB PO SCH (06:45)
[2017-08-23] MEDS: HYDROCHLOROTHIAZIDE 12.5 MG CAP PO SCH (09:19)
[2017-08-23] MEDS: LOTENSIN TAB 10 MG PO SCH (09:19)
[2017-08-23] MEDS: PEPCID 20 MG IV PREMIX* 20 MG/50 ML BAG IV SCH ×2 (09:19→20:23)
[2017-08-23] MEDS: MEGACE PO SCH ×2 (09:19→20:24)
[2017-08-23] MEDS: TEFLARO 400 MG in NS 50 ML IV 50 ML IV SCH ×2 (09:19→20:23)
[2017-08-23] MEDS: ZOFRAN INJ 4 MG VIAL IVP PRN (12:10)
[2017-08-23] MEDS: MAGNESIUM SULFATE 1 GM/100 mL PREMIX 1 GM/100 ML BAG IV PRN ×2 (14:02→15:11)
[2017-08-23] MEDS: K-RIDER 10 MEQ/NS 100 ML 10 MEQ/100 ML BAG IV PRN ×4 (16:08→20:40)
[2017-08-24] MEDS: NS 1000 ML 1,000 ML IV SCH ×4 (06:01→17:13)
[2017-08-24 06:28] LABS: BASOPHILS % (AUTO) 0.4 % (0.2-1.0); EOSINOPHILS % (AUTO) 0.2 % (0.9-2.9); HEMATOCRIT 31.5 % (36.0-47.0); HEMOGLOBIN 10.8 g/dL (12.0-16.0); LYMPHOCYTES % (AUTO) 8.5 % (21.0-51.0); MEAN CORPUSCULAR HEMOGLOBIN 31.2 pg (27.0-34.0); MEAN CORPUSCULAR HGB CONC 34.2 g/dL (33.0-35.0); MEAN CORPUSCULAR VOLUME 91.3 fL (80.0-100.0); MEAN PLATELET VOLUME 10.2 fL (7.4-11.0); MONOCYTES # (AUTO) 0.5 x10^3/uL (0.3-0.8); MONOCYTES % (AUTO) 4.5 % (0.0-13.0); NEUTROPHILS # (AUTO) 10.2 x10^3/uL (2.2-4.8); NEUTROPHILS % (AUTO) 86.4 % (42.0-75.0); PLATELET COUNT 187 X10^3/uL (150.0-450.0); RED BLOOD COUNT 3.45 X10^6/uL (3.5-5.4); RED CELL DISTRIBUTION WIDTH 14.2 % (11.6-16.5); WHITE BLOOD COUNT 11.8 X10^3/uL (3.6-10.0)
[2017-08-24 06:34] LABS: ALANINE AMINOTRANSFERASE 6 Units/L (12-78); ALBUMIN 2.1 g/dL (3.4-5.0); ALKALINE PHOSPHATASE 49 Units/L (46-116); ASPARTATE AMINO TRANSFERASE 14 Units/L (15-37); BLOOD UREA NITROGEN 12 mg/dL (7-18); CALCIUM 8.1 mg/dL (8.5-10.1); CARBON DIOXIDE 24.6 mmol/L (21-32); CHLORIDE 109 mmol/L (98-107); COR CA(FOR HYPOALB) 9.6 mg/dL (8.5-10.1); CREATININE 0.91 mg/dL (0.55-1.02); SODIUM 142 mmol/L (136-145); eGFR BLACK RACES > 60 (>60); eGFR NON BLACK RACES > 60 (>60)
[2017-08-24] MEDS: LOTENSIN TAB 10 MG PO SCH (08:51)
[2017-08-24] MEDS: HYDROCHLOROTHIAZIDE 12.5 MG CAP PO SCH (08:51)
[2017-08-24] MEDS: MEGACE PO SCH ×2 (08:51→20:30)
[2017-08-24] MEDS: PEPCID 20 MG IV PREMIX* 20 MG/50 ML BAG IV SCH ×2 (08:52→20:26)
[2017-08-24] MEDS: TEFLARO 400 MG in NS 50 ML IV 50 ML IV SCH ×2 (08:52→20:26)
[2017-08-24] MEDS: SYNTHROID 50 mcg TAB PO SCH (08:59)
[2017-08-25] MEDS: NS 1000 ML 1,000 ML IV SCH ×2 (01:30→07:03)
[2017-08-25 06:10] LABS: BASOPHILS # (AUTO) 0.1 X10^3/uL (0.0-0.1); BASOPHILS % (AUTO) 0.5 % (0.2-1.0); EOSINOPHILS % (AUTO) 0.2 % (0.9-2.9); HEMATOCRIT 32.6 % (36.0-47.0); HEMOGLOBIN 11.1 g/dL (12.0-16.0); LYMPHOCYTES % (AUTO) 9.2 % (21.0-51.0); MEAN CORPUSCULAR HEMOGLOBIN 30.8 pg (27.0-34.0); MEAN CORPUSCULAR HGB CONC 34.1 g/dL (33.0-35.0); MEAN CORPUSCULAR VOLUME 90.4 fL (80.0-100.0); MEAN PLATELET VOLUME 9.7 fL (7.4-11.0); MONOCYTES # (AUTO) 0.5 x10^3/uL (0.3-0.8); MONOCYTES % (AUTO) 4.5 % (0.0-13.0); NEUTROPHILS # (AUTO) 9.7 x10^3/uL (2.2-4.8); NEUTROPHILS % (AUTO) 85.6 % (42.0-75.0); PLATELET COUNT 185 X10^3/uL (150.0-450.0); RED BLOOD COUNT 3.61 X10^6/uL (3.5-5.4); RED CELL DISTRIBUTION WIDTH 14.1 % (11.6-16.5); WHITE BLOOD COUNT 11.3 X10^3/uL (3.6-10.0)
[2017-08-25 06:53] LABS: ALANINE AMINOTRANSFERASE 8 Units/L (12-78); ALBUMIN 2.2 g/dL (3.4-5.0); ALKALINE PHOSPHATASE 52 Units/L (46-116); ASPARTATE AMINO TRANSFERASE 11 Units/L (15-37); BLOOD UREA NITROGEN 10 mg/dL (7-18); CALCIUM 8.3 mg/dL (8.5-10.1); CARBON DIOXIDE 23.1 mmol/L (21-32); CHLORIDE 105 mmol/L (98-107); COR CA(FOR HYPOALB) 9.7 mg/dL (8.5-10.1); CREATININE 0.86 mg/dL (0.55-1.02); SODIUM 138 mmol/L (136-145); TOTAL PROTEIN 5.3 g/dL (6.4-8.2); eGFR BLACK RACES > 60 (>60); eGFR NON BLACK RACES > 60 (>60)
[2017-08-25] MEDS: TEFLARO 400 MG in NS 50 ML IV 50 ML IV SCH ×2 (09:37→21:02)
[2017-08-25] MEDS: PEPCID 20 MG IV PREMIX* 20 MG/50 ML BAG IV SCH ×2 (09:37→21:02)
[2017-08-25] MEDS: SYNTHROID 50 mcg TAB PO SCH (09:38)
[2017-08-25] MEDS: LOTENSIN TAB 10 MG PO SCH (09:39)
[2017-08-25] MEDS: HYDROCHLOROTHIAZIDE 12.5 MG CAP PO SCH (09:39)
[2017-08-25] MEDS: MEGACE PO SCH (09:39)
[2017-08-25] MEDS ORDERED: NS 100 ML IV 100 ML IV ONE (23:51)
[2017-08-26 05:19] LABS: ALANINE AMINOTRANSFERASE 7 Units/L (12-78); ALBUMIN 2.1 g/dL (3.4-5.0); ALKALINE PHOSPHATASE 48 Units/L (46-116); ASPARTATE AMINO TRANSFERASE 15 Units/L (15-37); BLOOD UREA NITROGEN 9 mg/dL (7-18); CALCIUM 8.1 mg/dL (8.5-10.1); CARBON DIOXIDE 23.8 mmol/L (21-32); CHLORIDE 102 mmol/L (98-107); COR CA(FOR HYPOALB) 9.6 mg/dL (8.5-10.1); CREATININE 0.88 mg/dL (0.55-1.02); SODIUM 136 mmol/L (136-145); TOTAL PROTEIN 5.1 g/dL (6.4-8.2); eGFR BLACK RACES > 60 (>60); eGFR NON BLACK RACES > 60 (>60)
[2017-08-26 05:30] LABS: BASOPHILS % (AUTO) 0.4 % (0.2-1.0); EOSINOPHILS % (AUTO) 0.1 % (0.9-2.9); HEMATOCRIT 31.6 % (36.0-47.0); LYMPHOCYTES # (AUTO) 0.9 X10^3/uL (1.3-2.9); MEAN CORPUSCULAR HGB CONC 34.7 g/dL (33.0-35.0); MEAN CORPUSCULAR VOLUME 89.3 fL (80.0-100.0); MEAN PLATELET VOLUME 9.8 fL (7.4-11.0); MONOCYTES # (AUTO) 0.5 x10^3/uL (0.3-0.8); MONOCYTES % (AUTO) 4.3 % (0.0-13.0); NEUTROPHILS # (AUTO) 10.2 x10^3/uL (2.2-4.8); NEUTROPHILS % (AUTO) 87.2 % (42.0-75.0); PLATELET COUNT 185 X10^3/uL (150.0-450.0); RED BLOOD COUNT 3.54 X10^6/uL (3.5-5.4); RED CELL DISTRIBUTION WIDTH 14.1 % (11.6-16.5); WHITE BLOOD COUNT 11.7 X10^3/uL (3.6-10.0)
[2017-08-26] MEDS: K-RIDER 10 MEQ/NS 100 ML 10 MEQ/100 ML BAG IV PRN ×6 (05:36→12:27)
[2017-08-26] MEDS: PEPCID 20 MG IV PREMIX* 20 MG/50 ML BAG IV SCH (08:45)
[2017-08-26] MEDS: TEFLARO 400 MG in NS 50 ML IV 50 ML IV SCH (09:09)
[2017-08-26] MEDS ORDERED: PULMICORT NEB TX 0.5 MG NEB ONE (11:53)
[2017-08-26] MEDS ORDERED: SYNTHROID 50 mcg TAB PO SCH (12:00)
[2017-08-26] MEDS ORDERED: LOTENSIN TAB 10 MG PO SCH (12:00)
[2017-08-26] MEDS ORDERED: HYDROCHLOROTHIAZIDE 12.5 MG CAP PO SCH (12:00)
[2017-08-26] MEDS ORDERED: MEGACE PO SCH (12:00)
[2017-08-26 12:42] VITALS: BP 145/65
--- NOTE | 2017-09-03 10:02 | OR.GENERIC ---
Post-Op Note Generic - Post-Op Note Operative Report: preoperative diagnosis- right wrist distal radius fracture, intra-articular, comminuted, osteoporotic, displaced Postoperative diagnosis-right wrist distal radius fracture intra-articular, osteoporotic, displaced, comminuted Procedure-open reduction internal fixation OF distal radius fracture with plates and screws Implants used- [place] 2.7/3.5 locking volar distal radius plate indication- patient 87-year-old female had a history of fall and fractured the right wrist. Patient's past history is significant for left peritrochanteric fracture which was treated with gamma nail. Patient states by herself at home and has grand son who stays nearby and takes care of her. He reports she had a fall when she tripped over a carpet and fracture of right wrist. She was seen in the emergency room. X-rays confirmed that it was a displaced distal radius fracture. I was consulted for the same. It was intra-articular and comminuted fracture which was displaced and treatment discussions were done. The water to proceed with surgical intervention in the form of open reduction internal fixation with plates and screws placed volarly. The patient as well as the grandson were taken throughout the procedure in detail. Preoperative and postoperative instructions were also discussed with her. Postoperative mobilization of the wrist and difficulty with using the walker, keeping in mind her left hip fracture were discussed with her as well as the grandson. Complications including but not limited to infection, median nerve injury, radial artery injury, intra-articular placement of the screws, implant failure, need for implant removal, symptomatic implant, EPL tendon rupture, nonunion, malunion, need for further procedures where free of the complications which were discussed with them. They understood and verbalized are seen. Patient was seen in the preop holding area. Patient got an regional block. limb was marked. Patient got appropriate antibiotics. Consent was again revisited. Patient was brought to the operating room. Patient was placed supine and general anesthesia induced. Right upper lid was placed on a. Tourniquet applied but not inflated. Right limb prepped and draped. Tourniquet inflated after Esmarch exsanguination. An Nish volar approach was used. Incision placed over the radial aspect of the distal forearm. Dissection carried down to expose the FCR. Deep dissection taken through the FCR protecting the radial artery. Pronator quadratus was released distally and radially. Fracture site identified. Fracture reduction was achieved with traction, counter traction and direct manipulation. Fracture reduction held in position with the help of 4 temporary K wires. The intra-articular fracture cleared of hematoma with the dental pick. Fracture reduction achieved and articular congruency was restored. A pointed Diaz clamp used to compress the fracture and hold it in reduced position. Dorsal comminution noted. At this time 2 holed distal radius locking plate was placed appropriately and checked in both AP and lateral that it was not placed too distally. Multiple locking screws were placed starting to distal ulnarly and the proceeding radially.after fixation of the distal locking screws and confirming that none of them were articular and none of them were protruding dorsally, a proximal nonlocking screw was placed in the oblong hole to suck the plate to the bone and to restore the volar angulation. There is no change in the distal locking screws. The rest of the screws were placed in the proximal holes in a locking mode. Final x-rays were obtained with satisfactory placement of the plate as well as anatomic reduction of the distal ra Again it was confirmed that none of the screws were intra-articular or protruded dorsally using multiple C-arm images in multiple planes. The plate was covered with frare quadratus. Tourniquet deflated and hemostasis maintained. The rest of the wound was closed in layers. Sterile dressing applied. A volar splint was applied. Patient was woken up from the surgery. no complications noted at the end of surgery. Blood loss was minimal due to tourniquet usage.Patient was stable and was shifted to the PACU. Patient had an brisk capillary refill. Patient had a regional block. Postoperative x-rays were obtained which were satisfactory. The findings were discussed with the family in the consultation room. Postop instructions were given. Family would be happy to place her in a shelter on a permanent basis because of her restrictions. I assured that we would discuss this with the social work faculty member and make appropriate arrangements for her. Advised to continue immobilization until further advice. Keep the dressing clean and dry. Begin back to the office as advised.
== END 2017-08-26 14:45 | DRG 512 ==
LOC: ER 19:13 → ICU 23:03 → OBSVTOIN 08-18 16:35 → MED/SURG 08-20 16:32
PROVIDERS: ADMIT Internal Medicine; ATTEND Internal Medicine
PROC: 0PSH04Z Reposition Right Radius with Internal Fixation Device, Open Approach (ICD-10-PCS; principal; 2017-08-19 08:30)
DX: S52.571A Other intraarticular fracture of lower end of right radius, initial encounter for closed fracture (principal); M25.531 Pain in right wrist; K21.9 Gastro-esophageal reflux disease without esophagitis; I10 Essential (primary) hypertension; Z91.81 History of falling; R26.89 Other abnormalities of gait and mobility; W18.39XA Other fall on same level, initial encounter; Y92.098 Other place in other non-institutional residence as the place of occurrence of the external cause
CPT/HCPCS: 29125; 36415; 71010; 73100; 74000; 76000; 76705; 80048; 80053; 82150; 83690; 83735; 84132; 85025; 87040; 94640; 94760; 96365; 96374; 97535; 99100; 99217; 99218; 99231; 99284; A4216; A4222; S0020; S0028; S0179; G0378; J0690; J0712; J2001; J2250; J2270; J2405; J2550; J2765; J3010; J3480; J3490; J7120; J7626

== ENCOUNTER → 2017-08-28 | Outpatient (CLI) | payer OTHER ==
[2017-08-26 12:42] VITALS: BP 145/65
--- NOTE | 2017-08-28 15:23 | RAD ---
Examination: AP chest History: Chest pain Comparison reference: 08/20/2017 Findings: Continued upper normal heart size. The pulmonary vessels are now congested and indistinct. There are bibasal densities consistent with airspace disease. Pleural fluid may be present. No pneumo thorax is seen. Impression: Interval deterioration since 08/20/2017. Increasing vascular congestion/CHF with suspect perivascular edema, bibasal pneumonia, atelectasis and pleural fluid. Reported By:
[2017-08-28 17:46] LABS: BASOPHILS # (AUTO) 0.1 X10^3/uL (0.0-0.1); BASOPHILS % (AUTO) 0.4 % (0.2-1.0); HEMATOCRIT 39.1 % (36.0-47.0); HEMOGLOBIN 13.3 g/dL (12.0-16.0); LYMPHOCYTES # (AUTO) 0.8 X10^3/uL (1.3-2.9); LYMPHOCYTES % (AUTO) 5.5 % (21.0-51.0); MEAN CORPUSCULAR HEMOGLOBIN 30.3 pg (27.0-34.0); MEAN CORPUSCULAR VOLUME 89.2 fL (80.0-100.0); MEAN PLATELET VOLUME 9.2 fL (7.4-11.0); MONOCYTES # (AUTO) 0.5 x10^3/uL (0.3-0.8); MONOCYTES % (AUTO) 3.1 % (0.0-13.0); NEUTROPHILS # (AUTO) 13.8 x10^3/uL (2.2-4.8); PLATELET COUNT 222 X10^3/uL (150.0-450.0); RED BLOOD COUNT 4.38 X10^6/uL (3.5-5.4); RED CELL DISTRIBUTION WIDTH 14.5 % (11.6-16.5); WHITE BLOOD COUNT 15.2 X10^3/uL (3.6-10.0)
[2017-08-28 17:57] LABS: ALANINE AMINOTRANSFERASE 8 Units/L (12-78); ALBUMIN 2.7 g/dL (3.4-5.0); ALKALINE PHOSPHATASE 67 Units/L (46-116); ASPARTATE AMINO TRANSFERASE 15 Units/L (15-37); BLOOD UREA NITROGEN 10 mg/dL (7-18); CALCIUM 8.5 mg/dL (8.5-10.1); CARBON DIOXIDE 17.6 mmol/L (21-32); CHLORIDE 93 mmol/L (98-107); COR CA(FOR HYPOALB) 9.5 mg/dL (8.5-10.1); CREATININE 0.88 mg/dL (0.55-1.02); SODIUM 130 mmol/L (136-145); TOTAL PROTEIN 6.1 g/dL (6.4-8.2); eGFR BLACK RACES > 60 (>60); eGFR NON BLACK RACES > 60 (>60)
[2017-08-28 17:59] LABS: PLATELET MORPHOLOGY COMMENT NORMAL (NORMAL)
== END ==
LOC: RAD 14:27
PROVIDERS: ATTEND Internal Medicine
DX: R07.89 Other chest pain (principal)
CPT/HCPCS: 36415; 71010; 80053; 85025; 93005; 93010

== ENCOUNTER → 2017-09-05 | Outpatient (CLI) | payer OTHER ==
[2017-08-26 12:42] VITALS: BP 145/65
--- NOTE | 2017-09-05 14:35 | RAD ---
HISTORY: Pneumonia Study: Single view of the chest. Comparison: 08/28/2017 Findings: Cardiomegaly. Hiatal hernia.. Bilateral interstitial prominence. Small right pleural effusion.. Conto ur abnormality of multiple right-sided ribs all. IMPRESSION: 1. Interstitial prominence a small right effusion which has improved somewhat since prior examinatio n. Correlate with symptoms. 2. Questionable contour deformity of lateral right ribs. Patient has right lateral rib tenderness. Wo uld consider rib fractures. Reported By:
== END ==
LOC: RAD 13:56
PROVIDERS: ATTEND Internal Medicine
DX: I50.9 Heart failure, unspecified (principal); J18.9 Pneumonia, unspecified organism
CPT/HCPCS: 71010

== ENCOUNTER → 2017-09-16 | Outpatient (CLI) | payer OTHER ==
[2017-08-26 12:42] VITALS: BP 145/65
--- NOTE | 2017-09-16 15:02 | RAD ---
Examination: Right wrist, three views History: Postop, surgery Comparison reference 08/19/2017 Findings: There is no change in position of the surgical fixation screw-plate device in the distal ra dius. The fracture is partly obscured. A portion of the fracture remains visible an union is not comp lete. Again is noted the slightly deforming and displaced fracture of the ulnar styloid. Impression: No significant change. Healing is not complete. No additional deformity is recognized. Reported By:
--- NOTE | 2017-09-16 15:05 | RAD ---
Examination: Left hip, two views History: Postop, pain Comparison reference: 08/01/2017 Findings: There is no change in appearance or position of the surgical fixation hardware in the proxi mal left femur. No hip displacement or acute fracture is demonstrated. The femoral head is in normal position. Chondrocalcinosis of the symphysis pubis is incidentally observed. Impression: Stable appearance of ORIF proximal left femoral fracture. No acute process demonstrated. Reported By:
== END ==
LOC: RAD 12:36
PROVIDERS: ATTEND Internal Medicine
DX: Z47.1 Aftercare following joint replacement surgery (principal)
CPT/HCPCS: 73100; 73501

== ENCOUNTER → 2017-09-30 | Outpatient (CLI) | payer OTHER ==
--- NOTE | 2017-09-30 18:05 | RAD ---
Examination: Left hip, two views History: Hip pain and weakness Comparison 09/16/2017 Findings: There is no change in appearance of the surgical fixation hardware or old fracture of the p roximal femur. No acute fracture, dislocation, hardware failure or bone infection is noted. Impression: No significant change. No acute left hip abnormality demonstrated. Postsurgical findings as before. Reported By:
== END ==
LOC: RAD 16:36
PROVIDERS: ATTEND Internal Medicine
DX: M25.552 Pain in left hip (principal)
CPT/HCPCS: 73501

== ENCOUNTER → 2017-11-01 | Outpatient (CLI) | payer OTHER ==
--- NOTE | 2017-11-01 12:16 | RAD ---
Examination: Chest, PA and lateral views History: Cough and congestion Comparison 09/05/2017 Continued normal heart size, arteriosclerotic aorta, essentially clear lungs and pleural spaces. A la rge hiatal hernia is again noted. There is marked osteopenia of the spine with multiple compression f ractures. There is evidence for previous vertebroplasty procedures. Impression: No acute cardiopulmonary lesion demonstrated. Large intrathoracic hiatal hernia. Marked o steopenia with multiple compression fracture deformities, kyphosis and status post vertebroplasties. Reported By:
== END ==
LOC: RAD 10:10
PROVIDERS: ATTEND Internal Medicine
DX: R05 Cough (principal); R09.89 Other specified symptoms and signs involving the circulatory and respiratory systems
CPT/HCPCS: 71046

== ENCOUNTER 2017-11-27 03:47 | Inpatient (IN) | payer OTHER ==
--- NOTE | 2017-11-27 04:01 | DR.GENAD ---
HPI - Complaint/Symptoms Chief Complaint Doctors Comments: Patient fell and injured her right hip when attempting to get up. PMH - PMH Past Medical History: GERD, Hypertension, Hyperthyroidism Past Surgical History: Yes Surgical History: Hysterectomy, Ortho Surgery (ORIF Lt. Hip (? Joint replacement ) in past 1-2 months) - Social History Do you use any recreational Drugs:: No ROS - Review of Systems Eyes: No Symptoms Reported ENTM: No Symptoms Reported Respiratoy: No Symptoms Reported Cardiovascular: No Symptoms Reported Gastrointestinal/Abdominal: No Symptoms Reported Genitourinary: No Symptoms Reported Neurological: No Symptoms Reported Musculoskeletal: No Symptoms Reported, Hip (right hip pain) Integumentary: No Symptoms Reported Hematologic/Lymphatic: No Symptoms Reported Endocrine: No Symptoms Reported Psychiatric: No Symptoms Reported All Other Systems: Reviewed and Negative PE - Vital Signs Vitals: Temperature 98.8 F Pulse Rate 74 Respiratory Rate 20 Blood Pressure [Left Arm] 145/65 Blood Pressure [Right Arm] 101/50 Blood Pressure 159/70 O2 Sat by Pulse Oximetry 97 - General General Appearance: Alert - Head Head Exam: Normal Inspection, Atraumatic - Eyes Eye exam: Normal Appearance, PERRL, EOMI - ENT ENT Exam: Normal Exam External Ear Exam: Normal External Inspection TM/Canal Exam: Bilateral Normal Nose Exam: Normal Nose Exam Mouth Exam: Normal Inspection Throat Exam: Normal Inspection - Neck Neck Exam: Normal Inspection - Chest Chest Inspection: Normal Inspection - Respiratory Respiratory Exam: Normal Lung Sounds Bilat Respiratory Exam: Bilateral Clear to Auscultation - Cardiovascular Cardiovascular Exam: Regular Rate, Normal Rhythm - Abdominal Exam Abdominal Exam: Normal Inspection, Normal Bowel Sounds Abdominal Tenderness: negative: RUQ, RLQ, LUQ, LLQ, Epigastrium, Suprapubic, Diffuse, Mild, Moderate, Severe, Other - Extremities Extremities Exam: Tenderness (right lower extremity in external rotation) - Back Back Exam: Normal Inspection - Neurologic Neurological Exam: Alert, Oriented X3, CN II-XII Intact - Psychiatric Psychiatric Exam: Normal Affect - Skin Skin Exam: Warm, Dry Course - Reevaluation 1st: Unchanged ROR - XRAY XRAY Interpreted by: Radiologist (Right Hip:There is intertrochanteric right hip fracture, with slight displacement. Left hip hardware is intact [place] gas obscures the sacrum. Osteopenia and degenerative changes noted. Slight varus anglulatioon noted. Impression: Acute right intertrochanteric fracture.) - Diagnosis Discharge Problem: Trochanteric fracture of right femur Qualifiers: Encounter type: initial encounter Fracture type: closed Qualified Code(s): S72.101A - Unspecified trochanteric fracture of right femur, initial encounter for closed fracture - Discharge Plan Condition: Stable - Follow ups/Referrals Follow ups/Referrals: BRAD WATTERS [Primary Care Provider] - 3 days - Instructions
--- NOTE | 2017-11-27 04:44 | RAD ---
Right hip-two views Indication: Pain after fall Findings: There is intertrochanteric right hip fracture, with slight displacement. Left hip hardware is intact. Bowel gas obscures the sacrum. Osteopenia and degenerative changes noted. Slight varus ang ulation noted. Impression: Acute right intertrochanteric fracture THE AVAILABILITY OF THE REPORT AND FINDINGS WERE COMMUNICATED TO Dr. Rodriguez by Dr. Marina on 8 Time called 4:40 a.m. Reported By:
[2017-11-27] MEDS ORDERED: MORPHINE SULFATE INJ 2 MG INJ ONE ×2 (05:09→08:06)
[2017-11-27] MEDS ORDERED: MORPHINE SULFATE INJ 2 MG INJ IVP ONE (05:09)
[2017-11-27] MEDS ORDERED: NS 1000 ML 1,000 ML ONE ×2 (05:49→11:17)
[2017-11-27 05:50] LABS: BASOPHILS # (AUTO) 0.1 X10^3/uL (0.0-0.1); BASOPHILS % (AUTO) 0.8 % (0.2-1.0); HEMATOCRIT 38.4 % (36.0-47.0); HEMOGLOBIN 12.9 g/dL (12.0-16.0); LYMPHOCYTES % (AUTO) 7.9 % (21.0-51.0); MEAN CORPUSCULAR HEMOGLOBIN 29.7 pg (27.0-34.0); MEAN CORPUSCULAR HGB CONC 33.5 g/dL (33.0-35.0); MEAN CORPUSCULAR VOLUME 88.5 fL (80.0-100.0); MEAN PLATELET VOLUME 9.5 fL (7.4-11.0); MONOCYTES # (AUTO) 0.6 x10^3/uL (0.3-0.8); MONOCYTES % (AUTO) 4.8 % (0.0-13.0); NEUTROPHILS # (AUTO) 10.6 x10^3/uL (2.2-4.8); NEUTROPHILS % (AUTO) 86.5 % (42.0-75.0); PLATELET COUNT 276 X10^3/uL (150.0-450.0); RED BLOOD COUNT 4.34 X10^6/uL (3.5-5.4); RED CELL DISTRIBUTION WIDTH 13.7 % (11.6-16.5); WHITE BLOOD COUNT 12.2 X10^3/uL (3.6-10.0)
[2017-11-27] MEDS: NS 1000 ML 1,000 ML IV SCH ×3 (06:00→22:24)
[2017-11-27 06:02] LABS: ALBUMIN 3.2 g/dL (3.4-5.0); CALCIUM 9.5 mg/dL (8.5-10.1); CARBON DIOXIDE 33.4 mmol/L (21-32); COR CA(FOR HYPOALB) 10.1 mg/dL (8.5-10.1); CREATININE 1.3 mg/dL (0.55-1.02); TOTAL PROTEIN 7.6 g/dL (6.4-8.2)
[2017-11-27 06:31] LABS: BILIRUBIN,URINE NEGATIVE (NEGATIVE); BLOOD/HEMOGLOBIN,URINE 3+ (NEGATIVE); GLUCOSE, URINE NEGATIVE (NEGATIVE); KETONES,URINE 2+ (NEGATIVE); LEUKOCYTE ESTERASE ,URINE 3+ (NEGATIVE); NITRITES,URINE POSITIVE (NEGATIVE); PROTEIN,URINE 2+ (NEGATIVE); UROBILINOGEN,URINE NORMAL (NORMAL)
[2017-11-27] MEDS ORDERED: ZOFRAN INJ 4 MG VIAL IVP PRN ×2 (06:38→14:06)
[2017-11-27 06:39] LABS: APPEARANCE,URINE CLOUDY (CLEAR); BACTERIA,URINE 3+ /HPF (NEGATIVE); COLOR,URINE YELLOW (YELLOW); RBC,URINE 40-50 /HPF (NEGATIVE); SQUAMOUS EPITHELIAL CELL,UR RARE /HPF (NEGATIVE)
[2017-11-27] MEDS: ANCEF 1 GM IV PREMIX* 1 GM/50 ML BAG IV SCH ×3 (07:00→22:23)
[2017-11-27] MEDS ORDERED: ANCEF VIAL 1 GM ONE (07:01)
[2017-11-27] MEDS ORDERED: NS 100 ML IV + SPIKE MINIBAG* 100 ML IV ONE (07:03)
[2017-11-27] MEDS: MORPHINE SULFATE INJ 2 MG INJ IVP PRN ×4 (08:04→19:30)
--- NOTE | 2017-11-27 08:51 | RAD ---
Examination: Chest x-ray. Clinical History: Preop for right hip ORIF. Technique: A single portable AP view of the chest was obtained. Comparison: 11/01/2017. Findings: The lungs are hypoventilated, precluding evaluation of the heart size. The thoracic aorta is calcifie d and tortuous. No pneumothorax or pleural effusion is noted. A linear opacity is present at the left lung base, likely due to subsegmental atelectasis or scarring . The bones are diffusely osteopenic. There are stable postsurgical changes from vertebroplasties in th e mid to lower thoracic spine. Degenerative changes are noted in the spine. No acute osseous abnormal ity is noted. Impression: 1. Hypoventilated lungs. 2. Subsegmental atelectasis versus scarring at the left lung base. Reported By:
[2017-11-27] MEDS ORDERED: BACITRACIN VIAL ONE (11:08)
[2017-11-27] MEDS ORDERED: ANCEF 1 GM IV PREMIX* 1 GM/50 ML BAG IV ONE (11:18)
[2017-11-27] MEDS ORDERED: XYLOCAINE-MPF 1% ONE (11:45)
--- NOTE | 2017-11-27 11:57 | DR.CONSULT ---
Consult - Consultation for Day of: Date: 11/27/17 - Chief Complaint Chief Complaint: fall at the assisted. and sustained the right hip fracture. - Allergies Allergies/Adverse Reactions: Allergies Allergy/AdvReac Type Severity Reaction Status Date / Time levofloxacin [From Levaquin] Allergy Verified 11/27/17 07:19 iodine AdvReac Verified 08/16/17 19:34 methylprednisolone AdvReac Verified 08/16/17 19:34 [From Medrol] - Past Medical History Past Medical History: GERD, Hypertension, Hyperthyroidism - Past Surgical History Surgical History: Ortho Surgery - Social History Does patient currently use any type of tobacco product: No Have you used tobacco products in the last 12 months: No Type of Tobacco Use: None Does any household member use tobacco: No Alcohol Use: None Drug Use: None - Medications Home Medications: Carboxymethylcellulose Sodium [Refresh Tears] 1 drop AFFEYE QID 11/27/17 [ History Confirmed 11/27/17] Clonazepam [Clonazepam] 1 tab PO BID PRN 11/27/17 [History Confirmed 11/27/17] Escitalopram Oxalate [LEXAPRO 10 MG TAB *] 1 tab PO DAILY 11/27/17 [History Confirmed 11/27/17] Levothyroxine Sodium [SYNTHROID 100 mcg *] 1 tab PO DAILY 11/27/17 [History Confirmed 11/27/17] Ondansetron HCl [Zofran Tab 4 mg] 4 mg PO Q4H PRN 11/27/17 [History Confirmed ] Simethicone [Gas Relief] 1 tab PO QID PRN 11/27/17 [History Confirmed 11/27/17] - Review of Systems Musculoskeletal: See HPI - Physical Exam Vital Signs: Temperature 98.3 F Pulse Rate [Right Brachial] 79 Pulse Rate 74 Respiratory Rate 16 Blood Pressure [Left Thigh] 179/89 Blood Pressure [Left Arm] 170/82 Blood Pressure [Right Arm] 101/50 Blood Pressure 137/61 O2 Sat by Pulse Oximetry 100 Musculoskeletal: Right, Hip, Swelling, Tender, Deformity - Plan Plan: RT HIP GAMMA NAIL FIXATION.
[2017-11-27] MEDS ORDERED: MARCAINE 0.25% INJ ONE (12:04)
[2017-11-27] MEDS ORDERED: NS IRRIGATION 1000 ML 1,000 ML with BACITRACIN VIAL 50,000 UNT IR ONE ×4 (12:10)
[2017-11-27] MEDS: BACTROBAN OINT ONE ×2 (12:55→13:15)
[2017-11-27] MEDS ORDERED: Q PUMP EPI PRN (13:03)
[2017-11-27] MEDS ORDERED: MARCAINE 0.5% 52 ML, NS 1000 ML 348 ML EPI PRN ×2 (13:03)
--- NOTE | 2017-11-27 13:48 | DR.H&P ---
H&P - History & Physical for Day of: H&P Date: 11/27/17 - Chief Complaint Chief Complaint: fall, acute right hip pain - Allergies Allergies/Adverse Reactions: Allergies Allergy/AdvReac Type Severity Reaction Status Date / Time levofloxacin [From Levaquin] Allergy Verified 11/27/17 07:19 iodine AdvReac Verified 08/16/17 19:34 methylprednisolone AdvReac Verified 08/16/17 19:34 [From Medrol] - History of Present Illness History of Present Illness: patient is a 87-year-old white female who is a resident [facility] patient was in the ER admission after presenting with complaints of a fall with acute right hip pain revealing a right hip fracture. Patient was admitted for pain control and orthopedic consultation. Patient has a past medical history of GERD and hypothyroidism. - Past Medical History Past Medical History: GERD, Hypertension, Hyperthyroidism - Past Surgical History Surgical History: Ortho Surgery - Social History Does patient currently use any type of tobacco product: No Have you used tobacco products in the last 12 months: No Type of Tobacco Use: None Does any household member use tobacco: No Alcohol Use: None Drug Use: None - Medications Home Medications: Carboxymethylcellulose Sodium [Refresh Tears] 1 drop AFFEYE QID 11/27/17 [ History Confirmed 11/27/17] Clonazepam [Clonazepam] 1 tab PO BID PRN 11/27/17 [History Confirmed 11/27/17] Escitalopram Oxalate [LEXAPRO 10 MG TAB *] 1 tab PO DAILY 11/27/17 [History Confirmed 11/27/17] Levothyroxine Sodium [SYNTHROID 100 mcg *] 1 tab PO DAILY 11/27/17 [History Confirmed 11/27/17] Ondansetron HCl [Zofran Tab 4 mg] 4 mg PO Q4H PRN 11/27/17 [History Confirmed ] Simethicone [Gas Relief] 1 tab PO QID PRN 11/27/17 [History Confirmed 11/27/17] - Review of Systems Constitutional: No Symptoms Reported Eyes: No Symptoms Reported ENT: No Symptoms Reported Respiratory: No Symptoms Reported Cardiovascular: No Symptoms Reported Gastrointestinal: Nausea Genitourinary: No Symptoms Reported Musculoskeletal: Leg Pain Skin: No Symptoms Reported Neurological: Weakness - Physical Exam Vital Signs: Temperature 98.3 F Pulse Rate [Right Brachial] 79 Pulse Rate 74 Respiratory Rate 16 Blood Pressure [Left Thigh] 179/89 Blood Pressure [Left Arm] 170/82 Blood Pressure [Right Arm] 101/50 Blood Pressure 137/61 O2 Sat by Pulse Oximetry 100 Oriented: Normal Eyes: Normal Ear: Normal Nose: Normal Throat: Normal Respiratory: RLL Diminished, LLL Diminished Cardiovascular: Normal : Normal Auscultation: Bowel Sounds: Normal Palpation: Normal Tenderness: Epigastric Skin: Decreased Turgur Musculoskeletal: Right, Hip, Thigh, Back:Lumbar Psychiatric: Anxiety Affect: Anxious Speech Pattern: Clear, Appropriate - Assessment/Plan (1) Closed right hip fracture Status: Acute Plan: admit, pain control. surgical consult, ekg and cxr. admission labs (2) Hypertension Status: Chronic (3) Hypothyroid Status: Chronic
[2017-11-27] MEDS ORDERED: DILAUDID INJ IVP PRN (14:06)
[2017-11-27] MEDS ORDERED: PHENERGAN INJ 25 MG IVP PRN (14:06)
[2017-11-27] MEDS ORDERED: BENADRYL INJ 50 MG VIAL IVP PRN (14:06)
[2017-11-27] MEDS ORDERED: REGLAN INJ 10 MG VIAL IVP PRN (14:06)
[2017-11-27] MEDS ORDERED: VERSED ONE (15:34)
[2017-11-27] MEDS ORDERED: DIPRIVAN VIAL ONE (15:34)
--- NOTE | 2017-11-27 16:13 | RAD ---
History: Postop right hip, comparison study 11/27/2017 labeled 4:09 a.m. Study: Portable AP and cross-table lateral views right hip Findings: Portable AP and cross-table lateral views of the right hip show interval fixation of the ri ght intratrochanteric fracture with a trochanteric nail. The threads of the trochanteric nail appear within the confines of the right femoral head. [employer] of the normal femoral neck angle is seen. A medullary elizabeth has been placed in the proximal femur anchor distally with a single screw. Impression: 1. Postoperative stabilization of the right intratrochanteric fracture with a trochanteric nail. Reported By:
--- NOTE | 2017-11-27 16:47 | RAD ---
Indication: Follow-up radial fracture. Comparison: Right wrist radiographs done September 16, 2017. Conclusion: There is interval healing of the distal radial fracture which is transfixed in near anato mical alignment without evidence of hardware failure. there is an ununited ulnar styloid fracture. Th e radiocarpal and distal radioulnar joints are maintained with mild degenerative changes. Reported By:
[2017-11-27] MEDS ORDERED: COLACE CAP 100 MG PO PRN (22:21)
[2017-11-27] MEDS: MILK OF MAGNESIA PO PRN (22:40)
[2017-11-28] MEDS: MORPHINE SULFATE INJ 2 MG INJ IVP PRN ×4 (00:23→16:50)
[2017-11-28 05:16] LABS: BASOPHILS % (AUTO) 0.4 % (0.2-1.0); EOSINOPHILS % (AUTO) 0.1 % (0.9-2.9); HEMATOCRIT 28.9 % (36.0-47.0); HEMOGLOBIN 9.9 g/dL (12.0-16.0); LYMPHOCYTES # (AUTO) 1.3 X10^3/uL (1.3-2.9); LYMPHOCYTES % (AUTO) 12.2 % (21.0-51.0); MEAN CORPUSCULAR HEMOGLOBIN 30.1 pg (27.0-34.0); MEAN CORPUSCULAR HGB CONC 34.3 g/dL (33.0-35.0); MEAN CORPUSCULAR VOLUME 87.8 fL (80.0-100.0); MEAN PLATELET VOLUME 9.4 fL (7.4-11.0); MONOCYTES # (AUTO) 0.8 x10^3/uL (0.3-0.8); MONOCYTES % (AUTO) 7.6 % (0.0-13.0); NEUTROPHILS # (AUTO) 8.2 x10^3/uL (2.2-4.8); NEUTROPHILS % (AUTO) 79.7 % (42.0-75.0); PLATELET COUNT 234 X10^3/uL (150.0-450.0); RED BLOOD COUNT 3.29 X10^6/uL (3.5-5.4); RED CELL DISTRIBUTION WIDTH 13.5 % (11.6-16.5); WHITE BLOOD COUNT 10.3 X10^3/uL (3.6-10.0)
[2017-11-28 05:17] LABS: CALCIUM 8.1 mg/dL (8.5-10.1); CARBON DIOXIDE 28.7 mmol/L (21-32); CREATININE 1.11 mg/dL (0.55-1.02)
[2017-11-28] MEDS: ANCEF 1 GM IV PREMIX* 1 GM/50 ML BAG IV SCH ×3 (05:41→21:23)
[2017-11-28] MEDS: NS 1000 ML 1,000 ML IV SCH ×3 (05:42→21:24)
[2017-11-28] MEDS ORDERED: MAALOX or MYLANTA PO PRN (11:15)
[2017-11-28] MEDS ORDERED: PHARMACY CONSULT - DOSE _____ XX SCH (13:00)
--- NOTE | 2017-11-28 13:46 | PCM.PROG ---
Progress Note - Progress Note for Day of Date: 11/28/17 - Subjective Subjective: Jamilah is a postop day 1. She is doing great. Pain is well controlled. Vital signs stable. She is afebrile. She has been out of bed and able to walk with the help of physical therapy. surgical dressing clean and dry. postop x-rays show an anatomically aligned RIGHT hip, with implant in situ. - Past Medical Family Social History Allergies: Allergies levofloxacin [From Levaquin] Allergy (Verified 11/27/17 07:19) iodine Adverse Reaction (Verified 08/16/17 19:34) methylprednisolone [From Medrol] Adverse Reaction (Verified 08/16/17 19:34) - Vital Signs and I&O's Vital Signs: Temperature 97.8 F Pulse Rate [Right Brachial] 80 Pulse Rate 83 Respiratory Rate 18 Blood Pressure [Left Thigh] 148/68 Blood Pressure [Left Arm] 170/82 Blood Pressure [Right Arm] 101/50 Blood Pressure 135/63 O2 Sat by Pulse Oximetry 94 Intake and Output: Intake & Output 11/26/17 11/27/17 11/28/17 11/29/17 11:59 11:59 11:59 11:59 Intake Total 0 850 Output Total 1040 Balance 0 -190 - Physical Exam Oriented: Normal Eyes: Normal Ear: Normal Nose: Normal Throat: Normal Cardiovascular: Normal : Normal Auscultation: Bowel Sounds: Normal Tenderness: Epigastric Skin: Decreased Turgur Musculoskeletal: Right, Hip, Thigh, Back:Lumbar Psychiatric: Anxiety Affect: Anxious Speech Pattern: Clear, Appropriate - Laboratory and Diagnostics Result Diagrams: 11/28/17 04:40 11/28/17 04:40 Labs: 11/27/17 06:12 Urine,Clean Catch Urine Culture - Preliminary Laboratory WBC 10.3 X10^3/uL (3.6-10.0) H 11/28/17 04:40 RBC 3.29 X10^6/uL (3.5-5.4) L 11/28/17 04:40 Hgb 9.9 g/dL (12.0-16.0) L D 11/28/17 04:40 Hct 28.9 % (36.0-47.0) L 11/28/17 04:40 MCV 87.8 fL (80.0-100.0) 11/28/17 04:40 MCH 30.1 pg (27.0-34.0) 11/28/17 04:40 MCHC 34.3 g/dL (33.0-35.0) 11/28/17 04:40 RDW 13.5 % (11.6-16.5) 11/28/17 04:40 Plt Count 234 X10^3/uL (150.0-450.0) 11/28/17 04:40 MPV 9.4 fL (7.4-11.0) 11/28/17 04:40 Neut % 79.7 % (42.0-75.0) H 11/28/17 04:40 Lymph % 12.2 % (21.0-51.0) L 11/28/17 04:40 [place] % 7.6 % (0.0-13.0) 11/28/17 04:40 Eos % 0.1 % (0.9-2.9) L 11/28/17 04:40 Baso % 0.4 % (0.2-1.0) 11/28/17 04:40 Neut # 8.2 x10^3/uL (2.2-4.8) H 11/28/17 04:40 Lymph # 1.3 X10^3/uL (1.3-2.9) 11/28/17 04:40 [place] # 0.8 x10^3/uL (0.3-0.8) 11/28/17 04:40 Eos # 0.0 x10^3/uL (0.0-0.2) 11/28/17 04:40 Baso # 0.0 X10^3/uL (0.0-0.1) 11/28/17 04:40 Absolute Nucleated RBC 0.0 /100WBC 11/28/17 04:40 INR Target Range - 11/27/17 05:40 INR 1.00 (0.8-1.3) 11/27/17 05:40 PTT 26.6 SECONDS (22.9-36.5) 11/27/17 05:40 PTT Comment - 11/27/17 05:40 Sodium 143 mmol/L (136-145) 11/28/17 04:40 Corrected Sodium 143 mmol/L (136-145) 11/28/17 04:40 Potassium 3.8 mmol/L (3.5-5.1) 11/28/17 04:40 Chloride 106 mmol/L (98-107) 11/28/17 04:40 Carbon Dioxide 28.7 mmol/L (21-32) 11/28/17 04:40 BUN 26 mg/dL (7-18) H 11/28/17 04:40 Creatinine 1.11 mg/dL (0.55-1.02) H 11/28/17 04:40 Est GFR (MDRD) Af Amer 60 (>60) 11/28/17 04:40 Est GFR (MDRD) Non-Af 49 (>60) L 11/28/17 04:40 Glucose 114 mg/dL (65-99) H 11/28/17 04:40 Calcium 8.1 mg/dL (8.5-10.1) L 11/28/17 04:40 Corrected Calcium 10.1 mg/dL (8.5-10.1) 11/27/17 05:40 Total Bilirubin 0.30 mg/dL (0.2-1.0) 11/27/17 05:40 AST 12 Units/L (15-37) L 11/27/17 05:40 ALT 9 Units/L (12-78) L 11/27/17 05:40 Alkaline Phosphatase 77 Units/L (46-116) 11/27/17 05:40 Total Protein 7.6 g/dL (6.4-8.2) 11/27/17 05:40 Albumin 3.2 g/dL (3.4-5.0) L 11/27/17 05:40 Globulin 4.4 g/dL (2.5-4.5) 11/27/17 05:40 Albumin/Globulin Ratio 0.7 Ratio (1.1-2.1) L 11/27/17 05:40 Specimen Type Catherized urine 11/27/17 06:12 Urine Color Yellow (YELLOW) 11/27/17 06:12 Urine Appearance Cloudy (CLEAR) 11/27/17 06:12 Urine pH 8.0 (5.0 - 8.0) 11/27/17 06:12 Ur Specific [place] 1.015 (1.000-1.030) 11/27/17 06:12 Urine Protein 2+ (NEGATIVE) 11/27/17 06:12 Urine Glucose (UA) Negative (NEGATIVE) 11/27/17 06:12 Urine Ketones 2+ (NEGATIVE) 11/27/17 06:12 Urine Occult Blood 3+ (NEGATIVE) 11/27/17 06:12 Urine Nitrite Positive (NEGATIVE) 11/27/17 06:12 Urine Bilirubin Negative (NEGATIVE) 11/27/17 06:12 Urine Urobilinogen Normal (NORMAL) 11/27/17 06:12 Ur Leukocyte Esterase 3+ (NEGATIVE) 11/27/17 06:12 Urine RBC 40-50 /HPF (NEGATIVE) 11/27/17 06:12 Urine WBC 20-30 /HPF (NEGATIVE) 11/27/17 06:12 Ur Squamous Epith Cells Rare /HPF (NEGATIVE) 11/27/17 06:12 Urine Bacteria 3+ /HPF (NEGATIVE) 11/27/17 06:12 Ur Culture Indicated? Yes/culture set up 11/27/17 06:12 - Plan (1) Closed right hip fracture Status: Acute Plan: physical therapy-weightbearing as tolerated, no posterior hip precautions. Pain management. director of community services for discharge planning. Regular wound dressing change. Follow-up is advised
[2017-11-28] MEDS ORDERED: LEXAPRO ONE (13:53)
[2017-11-28] MEDS: DIFLUCAN 200 MG IV PREMIX* 200 MG/100 ML BAG IV SCH (14:22)
[2017-11-28] MEDS: SYNTHROID 100 mcg TAB PO SCH ×2 (14:23→16:05)
[2017-11-28] MEDS: HYDROCHLOROTHIAZIDE 12.5 MG CAP PO SCH (14:23)
[2017-11-28] MEDS: LEXAPRO PO SCH (14:23)
[2017-11-28] MEDS: NYSTATIN POWDER TOP SCH ×2 (14:23→21:24)
[2017-11-28] MEDS: LEVSIN/MAALOX/LIDOC VISC PO SCH ×3 (14:24→20:22)
[2017-11-28] MEDS: LOVENOX INJ 30 MG SYR SC SCH (20:23)
[2017-11-29] MEDS: MORPHINE SULFATE INJ 2 MG INJ IVP PRN ×3 (01:00→20:18)
[2017-11-29 05:27] LABS: BASOPHILS % (AUTO) 0.2 % (0.2-1.0); EOSINOPHILS % (AUTO) 0.1 % (0.9-2.9); HEMATOCRIT 26.4 % (36.0-47.0); LYMPHOCYTES # (AUTO) 1.1 X10^3/uL (1.3-2.9); LYMPHOCYTES % (AUTO) 7.6 % (21.0-51.0); MEAN CORPUSCULAR HGB CONC 34.2 g/dL (33.0-35.0); MEAN CORPUSCULAR VOLUME 87.8 fL (80.0-100.0); MEAN PLATELET VOLUME 9.3 fL (7.4-11.0); MONOCYTES # (AUTO) 0.8 x10^3/uL (0.3-0.8); MONOCYTES % (AUTO) 5.7 % (0.0-13.0); NEUTROPHILS # (AUTO) 12.7 x10^3/uL (2.2-4.8); NEUTROPHILS % (AUTO) 86.4 % (42.0-75.0); PLATELET COUNT 226 X10^3/uL (150.0-450.0); RED CELL DISTRIBUTION WIDTH 13.4 % (11.6-16.5); WHITE BLOOD COUNT 14.6 X10^3/uL (3.6-10.0)
[2017-11-29 05:34] LABS: BLOOD UREA NITROGEN 22 mg/dL (7-18); CALCIUM 7.9 mg/dL (8.5-10.1); CARBON DIOXIDE 24.8 mmol/L (21-32); CHLORIDE 106 mmol/L (98-107); COR NA(FOR HYPERGLY) 140 mmol/L (136-145); CREATININE 1.05 mg/dL (0.55-1.02); SODIUM 140 mmol/L (136-145); eGFR BLACK RACES > 60 (>60); eGFR NON BLACK RACES 53 (>60)
[2017-11-29] MEDS: ANCEF 1 GM IV PREMIX* 1 GM/50 ML BAG IV SCH ×3 (05:38→21:29)
[2017-11-29] MEDS: NS 1000 ML 1,000 ML IV SCH ×3 (05:39→21:29)
[2017-11-29] MEDS: NYSTATIN POWDER TOP SCH ×3 (05:39→21:29)
[2017-11-29] MEDS ORDERED: LEXAPRO ONE (08:05)
[2017-11-29] MEDS: LEVSIN/MAALOX/LIDOC VISC PO SCH ×4 (08:32→20:18)
[2017-11-29] MEDS: HYDROCHLOROTHIAZIDE 12.5 MG CAP PO SCH (08:33)
[2017-11-29] MEDS: LEXAPRO PO SCH (08:33)
[2017-11-29] MEDS: DIFLUCAN 200 MG IV PREMIX* 200 MG/100 ML BAG IV SCH (08:33)
[2017-11-29] MEDS: LOVENOX INJ 30 MG SYR SC SCH (08:34)
[2017-11-29] MEDS ORDERED: LOTENSIN TAB 10 MG PO SCH (09:00)
[2017-11-29] MEDS: ZOFRAN INJ 4 MG VIAL IVP SCH ×2 (09:22→18:19)
--- NOTE | 2017-11-29 10:01 | RAD ---
History: Diminished lung sounds Study: Portable AP chest Comparison: November 27 Findings: There is a large hiatal hernia. The heart size is normal. There is methylmethacrylate insti lled and at least 2 thoracic vertebral bodies. There is an unchanged vertically oriented linear densi ty in the left lower lobe. The right lung is grossly clear. There is no obvious effusion. There is os teopenia. Impression: 1. Large hiatal hernia 2. Scar versus subsegmental atelectasis in the left lower lobe Reported By:
[2017-11-29] MEDS: PEPCID 20 MG IV PREMIX* 20 MG/50 ML BAG IV SCH ×2 (10:03→20:18)
[2017-11-29] MEDS ORDERED: DULCOLAX SUPPOSITORY 10 MG RECTAL ONE (14:20)
[2017-11-29] MEDS ORDERED: DULCOLAX SUPPOSITORY 10 MG ONE (17:28)
[2017-11-29] MEDS ORDERED: ROCEPHIN 1 GM IV PREMIX 1 GM/50 ML IV.SOLN. IV SCH (21:00)
--- NOTE | 2017-11-29 22:57 | OR.GENERIC ---
Post-Op Note Generic - Post-Op Note Operative Report: PREOPERATIVE DIAGNOSIS - RIGHT HIP INTERTROCHANTERIC FRACTURE, UNSTABLE, PATHOLOGICAL, OSTEOPOROTIC POSTOPERATIVE DIAGNOSIS -RIGHT HIP INTERTROCHANTERIC FRACTURE, UNSTABLE, PATHOLOGICAL, OSTEOPOROTIC PROCEDURE- RIGHT HIP GAMMA NAIL. IMPLANT USED-SHELBY GAMMA NAIL SHORT NAIL, 11 170 MM, HIP SCREW 90 MM, DISTAL LOCKING BOLT. INDICATION- patient is a 87-year-old female who presented to the emergenoom after a fall in the long-term. She sustained a right hip intertrochanteric fracture. X-rays and CT scan confirmed that s is an unstable intertrochanteric hip fracture.Past history significant for left hip intertrocracture which was treated with gamma nail. She also has healing right distal radius fracture which was also treated n and fixation. I was consulted for the same. Patient was met in the emergency room with the family. Again treatment discussions natural histor and postoperative care were discssed with the family as well as the patient. They wanted to proceed surgically fixing the right hip. Risk and benefits were discussed with him. Complications including but not limited to infection, osteomyelitis, neurovascular damage, nonunion, malunion, avascular necrosis, implant failure, arthritis, hip screw cut out, conversion to a total hip arthroplasty with failure of the complications which were discussed with him. Patient as well as the family understood and verbalized same. They consented to proceed with the surgery. Preoperative-patient was seen in the preoperative holding area. The . Patient had a spinal epidural injection by the Environmental Compliance Manager. Patient will apply topical antibiotic. Consent was again revisited. procedure-the patient was brought to the operating room. Patient was put under IV sedation. Patient was shifted to the fracture table. Left leg was abducted and placed in a well leg perez with adequate padding. Right limb was placed in the boot and longitudinal traction was applied and the limb was internally rotated by 15-20 deg. Closed reduction was successful and just confirmed with AP and lateral C-arm images. After satisfactory reduction the right limb was prepped and draped using a shower curtain. A guide wire was placed on the lateral aspect of the thigh and was confirmed to be parallel to the proximal femur and skin marked. Using a C-arm the proposed entry site was incised about 5-6 cm proximal to the tip of the greater trochanter. Dissection carried down through the tensor, gluteus muscles. The troch tip was palpated and the Guidewire placed at the tip of the greater trochanter. The lateral image was checked for correct ant 3rd and posterior thid placement on the troch. the guide wire was hammered gradually to enter the intramedullary canal. The guidewire was confirmed to be intramedullary both in AP as well as lateral C- arm images. A soft tissue protector was placed. The proximal reaming was completed on the guidewire using a one step conical reamer over the trochar and cannula. At this time an 11 mm x 170 mm trochanteric nail was mounted on the jig. The anterior portal was confirmed to be anterior. The targeting was checked to correspond to be appropriate. The nail was advanced over the guidewire and malleted to appropriate position. It was made sure that the proposed hip screw trajectory was inferior neck. The targeting device was held by the clinical project assistant in that position to prevent any external rotation. It was decided to proceed with lag screw fixation in 125 deg. The lag screw guide sleeve was assembled and was placed through the targeting device. The intramedullary guide wire was taken out. The approproate skin incision was made and deep disscetion carried through the tensor and the muscle to place the sleeve tip firmly placed on the lateral cortex. It was lightly malleted to ge an intial bite on the lateral cortex. The guide wire for lag screw was drilled into the neck and the head of femur and was confirmed to be inferior in AP and central in lateral c arm images. It was advanced to the sub chondral bone and measured to be 90 mm. The lag screw step drill was set to the 90 mm and was drilled over the guide wire and stopped upon contact with the sleeve. It was again checked in C arm with AP and Lat images. A 95 mm leg screw was assembeled and was advacned over the guide wire to the subchondral bone . decent bt not great purchase was noted. The guide was and the sleeve was removed. The images were obtained in multiple planes like 0, 30, 60 and 90 deg , as well as AP and lat images to congirm that there is no breach of the neck or the joint by the lag screw. There was good opposition at he fracture site , so need for compression was needed. The set srew was placed from the top and the lag screw was locked. This was again confirmed with C arm. Distal locking screw guide was placed through the targeting device in static slot and the skin , sub cut, fascia and muscle was incised. the sleeve was placed over the lateral cortex. It was drilled trhough the near and far cortex and the screw length was measured by the direct read. The appropaiate size locking bolt was placed through the distal locking slot. The sleeve was removed , as well as the targeting device. Final full length images of the nail and the proximal femur with hip joint were obtained in the AP and lateral direction. It was anatomical reduction and excellent fixation. The wounds were throught irrigated and closed in layers. Sterile dressing applied. Patient was woked up from the surgery. She was moved to the regular bed and was shifted to PACU in afebrile, stable vitals condition .Post op images were obatined and showed excellent reduction and fixation. The family was briefed about the surgery and the post op care. She is WBAT with no posterior hip precautions.
[2017-11-30] MEDS: ZOFRAN INJ 4 MG VIAL IVP SCH ×3 (02:39→16:43)
[2017-11-30] MEDS: ANCEF 1 GM IV PREMIX* 1 GM/50 ML BAG IV SCH ×2 (05:52→13:20)
[2017-11-30] MEDS: NYSTATIN POWDER TOP SCH ×3 (05:53→22:08)
[2017-11-30] MEDS: NS 1000 ML 1,000 ML IV SCH ×2 (05:53→13:29)
[2017-11-30 06:24] LABS: BASOPHILS # (AUTO) 0.1 X10^3/uL (0.0-0.1); BASOPHILS % (AUTO) 0.6 % (0.2-1.0); EOSINOPHILS % (AUTO) 0.2 % (0.9-2.9); HEMATOCRIT 26.1 % (36.0-47.0); HEMOGLOBIN 9.1 g/dL (12.0-16.0); LYMPHOCYTES # (AUTO) 1.2 X10^3/uL (1.3-2.9); LYMPHOCYTES % (AUTO) 11.1 % (21.0-51.0); MEAN CORPUSCULAR HEMOGLOBIN 30.4 pg (27.0-34.0); MEAN CORPUSCULAR HGB CONC 34.8 g/dL (33.0-35.0); MEAN CORPUSCULAR VOLUME 87.4 fL (80.0-100.0); MEAN PLATELET VOLUME 10.1 fL (7.4-11.0); MONOCYTES # (AUTO) 0.6 x10^3/uL (0.3-0.8); MONOCYTES % (AUTO) 5.4 % (0.0-13.0); NEUTROPHILS # (AUTO) 8.9 x10^3/uL (2.2-4.8); NEUTROPHILS % (AUTO) 82.7 % (42.0-75.0); PLATELET COUNT 211 X10^3/uL (150.0-450.0); RED BLOOD COUNT 2.98 X10^6/uL (3.5-5.4); RED CELL DISTRIBUTION WIDTH 13.4 % (11.6-16.5); WHITE BLOOD COUNT 10.7 X10^3/uL (3.6-10.0)
[2017-11-30 06:28] LABS: BLOOD UREA NITROGEN 19 mg/dL (7-18); CALCIUM 7.9 mg/dL (8.5-10.1); CARBON DIOXIDE 27.4 mmol/L (21-32); CHLORIDE 104 mmol/L (98-107); CREATININE 0.95 mg/dL (0.55-1.02); SODIUM 139 mmol/L (136-145); eGFR BLACK RACES > 60 (>60); eGFR NON BLACK RACES 59 (>60)
[2017-11-30 08:12] VITALS: BMI 18.8
[2017-11-30] MEDS: LOVENOX INJ 30 MG SYR SC SCH (08:41)
[2017-11-30] MEDS: DIFLUCAN 200 MG IV PREMIX* 200 MG/100 ML BAG IV SCH (08:41)
[2017-11-30] MEDS: PEPCID 20 MG IV PREMIX* 20 MG/50 ML BAG IV SCH ×2 (08:41→20:39)
[2017-11-30] MEDS: LEVSIN/MAALOX/LIDOC VISC PO SCH ×4 (08:42→20:39)
[2017-11-30] MEDS: MORPHINE SULFATE INJ 2 MG INJ IVP PRN (10:21)
[2017-11-30] MEDS: MILK OF MAGNESIA PO PRN (10:22)
[2017-11-30] MEDS ORDERED: MERREM VIAL 1,000 MG in NS 100 ML IV + SPIKE MINIBAG* 100 ML IV SCH (15:00)
[2017-11-30] MEDS ORDERED: MERREM VIAL ONE (15:05)
[2017-11-30] MEDS ORDERED: NS 100 ML IV 100 ML IV ONE (15:05)
[2017-11-30] MEDS: ZINC SULFATE PO SCH (16:10)
[2017-11-30] MEDS: TAB-A-VITE PO SCH (16:10)
[2017-11-30] MEDS ORDERED: LEXAPRO ONE (20:21)
[2017-11-30] MEDS: MEGACE PO SCH (20:40)
[2017-11-30] MEDS: LEXAPRO PO SCH (20:40)
[2017-11-30] MEDS: VITAMIN C PO SCH (20:40)
[2017-11-30] MEDS: SYNTHROID 100 mcg TAB PO SCH (20:40)
[2017-11-30] MEDS: LOTENSIN TAB 10 MG PO SCH (20:41)
[2017-11-30] MEDS: HYDROCHLOROTHIAZIDE 12.5 MG CAP PO SCH (20:41)
[2017-12-01] MEDS: MERREM VIAL 1 GM in NS 100 ML IV + SPIKE MINIBAG* 100 ML IV SCH ×3 (00:08→20:46)
[2017-12-01] MEDS: NS 1000 ML 1,000 ML IV SCH ×5 (00:09→23:18)
[2017-12-01] MEDS: ZOFRAN INJ 4 MG VIAL IVP SCH ×3 (00:48→16:41)
[2017-12-01] MEDS: NYSTATIN POWDER TOP SCH ×3 (05:15→23:18)
[2017-12-01 06:23] LABS: BASOPHILS # (AUTO) 0.1 X10^3/uL (0.0-0.1); BASOPHILS % (AUTO) 0.6 % (0.2-1.0); EOSINOPHILS % (AUTO) 0.3 % (0.9-2.9); HEMATOCRIT 23.3 % (36.0-47.0); HEMOGLOBIN 8.1 g/dL (12.0-16.0); LYMPHOCYTES # (AUTO) 0.8 X10^3/uL (1.3-2.9); LYMPHOCYTES % (AUTO) 8.9 % (21.0-51.0); MEAN CORPUSCULAR HEMOGLOBIN 30.3 pg (27.0-34.0); MEAN CORPUSCULAR HGB CONC 34.9 g/dL (33.0-35.0); MEAN CORPUSCULAR VOLUME 86.9 fL (80.0-100.0); MEAN PLATELET VOLUME 10.4 fL (7.4-11.0); MONOCYTES # (AUTO) 0.6 x10^3/uL (0.3-0.8); MONOCYTES % (AUTO) 6.1 % (0.0-13.0); NEUTROPHILS # (AUTO) 7.8 x10^3/uL (2.2-4.8); NEUTROPHILS % (AUTO) 84.1 % (42.0-75.0); PLATELET COUNT 198 X10^3/uL (150.0-450.0); RED BLOOD COUNT 2.69 X10^6/uL (3.5-5.4); RED CELL DISTRIBUTION WIDTH 13.3 % (11.6-16.5); WHITE BLOOD COUNT 9.3 X10^3/uL (3.6-10.0)
[2017-12-01 06:59] LABS: ALANINE AMINOTRANSFERASE 7 Units/L (12-78); ALKALINE PHOSPHATASE 61 Units/L (46-116); ASPARTATE AMINO TRANSFERASE 19 Units/L (15-37); BLOOD UREA NITROGEN 16 mg/dL (7-18); CALCIUM 7.8 mg/dL (8.5-10.1); CARBON DIOXIDE 27.4 mmol/L (21-32); CHLORIDE 102 mmol/L (98-107); COR CA(FOR HYPOALB) 9.4 mg/dL (8.5-10.1); CREATININE 0.86 mg/dL (0.55-1.02); SODIUM 137 mmol/L (136-145); TOTAL PROTEIN 5.5 g/dL (6.4-8.2); eGFR BLACK RACES > 60 (>60); eGFR NON BLACK RACES > 60 (>60)
[2017-12-01] MEDS ORDERED: MAG-OX TAB PO PRN (08:00)
[2017-12-01] MEDS ORDERED: POTASSIUM CHL 60 MEQ/NS 0.45% 500 ML IV PRN (08:00)
[2017-12-01] MEDS ORDERED: POTASSIUM CHLORIDE LIQ 20 MEQ UDC PO PRN (08:00)
[2017-12-01] MEDS ORDERED: K-LYTE EFFERVESCENT PO PRN (08:00)
[2017-12-01] MEDS ORDERED: K-RIDER 10 MEQ/NS 100 ML 10 MEQ/100 ML BAG IV PRN (08:00)
[2017-12-01] MEDS ORDERED: MAGNESIUM SULFATE 1 GM/100 mL PREMIX 1 GM/100 ML BAG IV PRN (08:00)
[2017-12-01] MEDS ORDERED: POTASSIUM CHL 40 MEQ/NS 0.45% 500 ML IV PRN (08:00)
[2017-12-01] MEDS: LEVSIN/MAALOX/LIDOC VISC PO SCH ×4 (08:04→20:32)
[2017-12-01] MEDS: LOVENOX INJ 30 MG SYR SC SCH (08:04)
[2017-12-01] MEDS: VITAMIN C PO SCH ×3 (08:05→20:33)
[2017-12-01] MEDS: TAB-A-VITE PO SCH (08:05)
[2017-12-01] MEDS: MEGACE PO SCH ×2 (08:05→20:33)
[2017-12-01] MEDS: ZINC SULFATE PO SCH (08:05)
[2017-12-01] MEDS: PEPCID 20 MG IV PREMIX* 20 MG/50 ML BAG IV SCH ×2 (08:05→20:33)
[2017-12-01] MEDS ORDERED: NS 100 ML IV 100 ML IV ONE ×2 (09:17→20:31)
[2017-12-01] MEDS ORDERED: MERREM VIAL ONE ×2 (09:17→20:31)
[2017-12-01] MEDS ORDERED: ANUCORT-HC SUPP PR PRN (09:23)
[2017-12-01] MEDS: MORPHINE SULFATE INJ 2 MG INJ IVP PRN (11:35)
[2017-12-01] MEDS ORDERED: LEXAPRO ONE (20:18)
[2017-12-01] MEDS: HYDROCHLOROTHIAZIDE 12.5 MG CAP PO SCH (20:32)
[2017-12-01] MEDS: LEXAPRO PO SCH (20:32)
[2017-12-01] MEDS: LOTENSIN TAB 10 MG PO SCH (20:32)
[2017-12-01] MEDS: NORCO 5/325 MG TAB PO PRN (20:33)
[2017-12-01] MEDS: SYNTHROID 100 mcg TAB PO SCH (20:33)
[2017-12-02] MEDS: ZOFRAN INJ 4 MG VIAL IVP SCH ×3 (01:55→17:37)
[2017-12-02 05:31] LABS: BASOPHILS # (AUTO) 0.1 X10^3/uL (0.0-0.1); BASOPHILS % (AUTO) 0.9 % (0.2-1.0); EOSINOPHILS % (AUTO) 0.3 % (0.9-2.9); HEMATOCRIT 24.9 % (36.0-47.0); HEMOGLOBIN 8.6 g/dL (12.0-16.0); LYMPHOCYTES # (AUTO) 1.2 X10^3/uL (1.3-2.9); LYMPHOCYTES % (AUTO) 12.4 % (21.0-51.0); MEAN CORPUSCULAR HEMOGLOBIN 29.9 pg (27.0-34.0); MEAN CORPUSCULAR HGB CONC 34.5 g/dL (33.0-35.0); MEAN CORPUSCULAR VOLUME 86.6 fL (80.0-100.0); MONOCYTES # (AUTO) 0.7 x10^3/uL (0.3-0.8); NEUTROPHILS # (AUTO) 7.6 x10^3/uL (2.2-4.8); NEUTROPHILS % (AUTO) 79.4 % (42.0-75.0); PLATELET COUNT 250 X10^3/uL (150.0-450.0); RED BLOOD COUNT 2.88 X10^6/uL (3.5-5.4); RED CELL DISTRIBUTION WIDTH 13.3 % (11.6-16.5); WHITE BLOOD COUNT 9.5 X10^3/uL (3.6-10.0)
[2017-12-02 05:42] LABS: ALANINE AMINOTRANSFERASE < 6 Units/L (12-78); ALKALINE PHOSPHATASE 57 Units/L (46-116); ASPARTATE AMINO TRANSFERASE 15 Units/L (15-37); BLOOD UREA NITROGEN 12 mg/dL (7-18); CALCIUM 7.6 mg/dL (8.5-10.1); CARBON DIOXIDE 26.1 mmol/L (21-32); CHLORIDE 101 mmol/L (98-107); COR CA(FOR HYPOALB) 9.2 mg/dL (8.5-10.1); SODIUM 134 mmol/L (136-145); TOTAL PROTEIN 5.5 g/dL (6.4-8.2); eGFR BLACK RACES > 60 (>60); eGFR NON BLACK RACES > 60 (>60)
[2017-12-02] MEDS: NYSTATIN POWDER TOP SCH ×3 (06:10→21:48)
[2017-12-02] MEDS: NS 1000 ML 1,000 ML IV SCH ×2 (06:10→16:28)
[2017-12-02] MEDS: NORCO 5/325 MG TAB PO PRN ×2 (06:42→10:40)
[2017-12-02] MEDS: LEVSIN/MAALOX/LIDOC VISC PO SCH ×4 (09:27→20:29)
[2017-12-02] MEDS: PEPCID 20 MG IV PREMIX* 20 MG/50 ML BAG IV SCH ×2 (09:28→20:12)
[2017-12-02] MEDS: VITAMIN C PO SCH ×2 (09:28→20:11)
[2017-12-02] MEDS: TAB-A-VITE PO SCH (09:28)
[2017-12-02] MEDS: ZINC SULFATE PO SCH (09:28)
[2017-12-02] MEDS: MEGACE PO SCH ×2 (09:28→20:12)
[2017-12-02] MEDS: LOVENOX INJ 30 MG SYR SC SCH (09:29)
[2017-12-02] MEDS: MERREM VIAL 1 GM in NS 100 ML IV + SPIKE MINIBAG* 100 ML IV SCH ×2 (10:37→21:48)
[2017-12-02] MEDS ORDERED: ULTRAM PO PRN (13:07)
[2017-12-02] MEDS ORDERED: LEXAPRO ONE (19:42)
[2017-12-02] MEDS: LEXAPRO PO SCH (20:11)
[2017-12-02] MEDS: SYNTHROID 100 mcg TAB PO SCH (20:12)
[2017-12-02] MEDS: HYDROCHLOROTHIAZIDE 12.5 MG CAP PO SCH (20:12)
[2017-12-02] MEDS: LOTENSIN TAB 10 MG PO SCH (20:29)
[2017-12-02] MEDS ORDERED: NEURONTIN CAP 100 MG PO SCH (21:00)
--- NOTE | 2017-12-02 22:57 | CT ---
CT brain without contrast Indication: Altered mental status Comparison: None available Technique: Multiple axial images of the brain were obtained from the skull base to the vertex without administra tion of IV contrast. Findings: There is moderate generalized cerebral atrophy with bilateral periventricular and deep white matter h ypoattenuation. No acute intraparenchymal hemorrhage or mass can be identified. No extra-axial fluid collections are seen. No alteration in the attenuation of the brain parenchyma can be identified to suggest acute o r subacute ischemic change. The ventricular system is symmetric and nondilated. The extracranial st ructures are grossly unremarkable. IMPRESSION: 1. No acute intracranial hemorrhage. 2. Moderate generalized cerebral atrophy and bilateral periventricular and deep white matter hypoatte nuation is nonspecific however likely represent sequela of chronic microvascular ischemic disease. Reported By:
[2017-12-03] MEDS: ZOFRAN INJ 4 MG VIAL IVP SCH (00:52)
[2017-12-03] MEDS: NS 1000 ML 1,000 ML IV SCH (04:24)
[2017-12-03] MEDS ORDERED: ZOFRAN INJ 4 MG VIAL IVP SCH (06:00)
[2017-12-03] MEDS: NYSTATIN POWDER TOP SCH (06:16)
[2017-12-03 06:21] LABS: BASOPHILS # (AUTO) 0.1 X10^3/uL (0.0-0.1); BASOPHILS % (AUTO) 0.7 % (0.2-1.0); EOSINOPHILS % (AUTO) 0.2 % (0.9-2.9); HEMATOCRIT 28.3 % (36.0-47.0); HEMOGLOBIN 9.8 g/dL (12.0-16.0); LYMPHOCYTES % (AUTO) 8.3 % (21.0-51.0); MEAN CORPUSCULAR HEMOGLOBIN 29.7 pg (27.0-34.0); MEAN CORPUSCULAR HGB CONC 34.6 g/dL (33.0-35.0); MEAN CORPUSCULAR VOLUME 85.8 fL (80.0-100.0); MEAN PLATELET VOLUME 9.4 fL (7.4-11.0); MONOCYTES # (AUTO) 0.8 x10^3/uL (0.3-0.8); MONOCYTES % (AUTO) 6.3 % (0.0-13.0); NEUTROPHILS # (AUTO) 10.4 x10^3/uL (2.2-4.8); NEUTROPHILS % (AUTO) 84.5 % (42.0-75.0); PLATELET COUNT 308 X10^3/uL (150.0-450.0); RED CELL DISTRIBUTION WIDTH 13.4 % (11.6-16.5); WHITE BLOOD COUNT 12.3 X10^3/uL (3.6-10.0)
[2017-12-03 06:49] LABS: ALANINE AMINOTRANSFERASE 9 Units/L (12-78); ALBUMIN 2.3 g/dL (3.4-5.0); ALKALINE PHOSPHATASE 62 Units/L (46-116); ASPARTATE AMINO TRANSFERASE 18 Units/L (15-37); BLOOD UREA NITROGEN 11 mg/dL (7-18); CALCIUM 8.1 mg/dL (8.5-10.1); CARBON DIOXIDE 26.1 mmol/L (21-32); CHLORIDE 100 mmol/L (98-107); COR CA(FOR HYPOALB) 9.5 mg/dL (8.5-10.1); CREATININE 0.86 mg/dL (0.55-1.02); SODIUM 134 mmol/L (136-145); TOTAL PROTEIN 6.1 g/dL (6.4-8.2); eGFR BLACK RACES > 60 (>60); eGFR NON BLACK RACES > 60 (>60)
[2017-12-03 08:54] VITALS: BP 182/82
[2017-12-03] MEDS: NORCO 5/325 MG TAB PO PRN (09:45)
[2017-12-03] MEDS: TAB-A-VITE PO SCH (09:46)
[2017-12-03] MEDS: VITAMIN C PO SCH (09:46)
[2017-12-03] MEDS: MEGACE PO SCH (09:46)
[2017-12-03] MEDS: ZINC SULFATE PO SCH (09:46)
[2017-12-03] MEDS: LEVSIN/MAALOX/LIDOC VISC PO SCH (09:47)
[2017-12-03] MEDS: PEPCID 20 MG IV PREMIX* 20 MG/50 ML BAG IV SCH (09:47)
[2017-12-03] MEDS: LOVENOX INJ 30 MG SYR SC SCH (09:47)
[2017-12-03] MEDS: MERREM VIAL 1 GM in NS 100 ML IV + SPIKE MINIBAG* 100 ML IV SCH (09:48)
== END 2017-12-03 12:00 | DRG 536 ==
LOC: ER 03:47 → MED/SURG 06:16 → OBS 06:16
PROVIDERS: ADMIT Internal Medicine; ATTEND Internal Medicine
PROC: 0QS634Z Reposition Right Upper Femur with Internal Fixation Device, Percutaneous Approach (ICD-10-PCS; principal; 2017-11-27 11:00)
DX: S72.091A Other fracture of head and neck of right femur, initial encounter for closed fracture (principal); W18.39XA Other fall on same level, initial encounter; Y92.128 Other place in nursing home as the place of occurrence of the external cause; M25.551 Pain in right hip; K21.9 Gastro-esophageal reflux disease without esophagitis; R94.31 Abnormal electrocardiogram [ECG] [EKG]; E03.8 Other specified hypothyroidism; N39.0 Urinary tract infection, site not specified; B96.29 Other Escherichia coli [E. coli] as the cause of diseases classified elsewhere; R26.89 Other abnormalities of gait and mobility
CPT/HCPCS: 36415; 51702; 62326; 70450; 71045; 73100; 73501; 76000; 80048; 80053; 81001; 83735; 85025; 85610; 85730; 87086; 87088; 87186; 93005; 93010; 94640; 94762; 96365; 96374; 99100; 99284; A4222; S0020; S0028; S0179; J0690; J0696; J1450; J1650; J2185; J2250; J2270; J2405; J3490

== ENCOUNTER 2017-12-07 07:18 | Emergency (ER) | payer OTHER ==
[2017-12-07] MEDS ORDERED: NS 1000 ML 1,000 ML ONE ×3 (07:36→12:41)
[2017-12-07 07:38] VITALS: BMI 18.6
[2017-12-07] MEDS ORDERED: NS 1000 ML 1,000 ML IV ONE ×3 (07:38→12:45)
--- NOTE | 2017-12-07 08:20 | DR.GENAD ---
HPI - PCP Primary Care Physician: DUONG - HPI Comment HPI Comment: IV FLUID AND NR OXYGEN IS PROGRESS. PATIENTS RELATIVE DO NOT WANT INVASIVE INTERVENTIONS. - Complaint/Symptoms Chief Complaint Doctors Comments: AMS, HYPOTENSION AND SOB WITH LOW O2 SAT. THIS WAS NOTED IN THE CORRECTION. Chief Complaint:: NURSE AT [facility] STATED THAT PATIENT WAS HAVING SOME RESP. DISTRESS WITH RESP. RATE OF 30'S AND 02 STAT OF 72-95%. THEY ALL SO STATED THAT SHE IS HURTING ALL. SHE IS S/P RIGHT HIP SURGERY. - Nurses notes reviewed Nurses Notes Review: Yes - Source History Provided: Longterm - Mode of Arrival Mode of Arrival: Stretcher - Timing Onset of Chief Complaint: 12/07/17 Came on: Suddenly - Duration Duration: Days - Severity Severity: Moderate PMH - PMH Past Medical History: Yes Past Medical History: GERD, Hypertension, Hyperthyroidism Past Surgical History: Yes Surgical History: Ortho Surgery - Family History History of Family Medical Conditions: No - Social History Does patient currently use any type of tobacco product: No Have you used tobacco products in the last 12 months: No Type of Tobacco Use: None Does any household member use tobacco: No Alcohol Use: None Do you use any recreational Drugs:: No Lives With: Family Lives Where: Home - infectious screening In the last 2 months have you had wt loss of >10#?: NO Have you had fever, night sweats or hemotysis?: No Have you traveled outside the country in the last 6 months?: No Isolation: Standard ROS - Review of Systems Constitutional: Weakness, Fatigue. negative: Fever Eyes: No Symptoms Reported. negative: Eye Pain, Discharge ENTM: No Symptoms Reported. negative: Ear Pain, Nose Discharge, Nose Congestion , Throat Pain Respiratoy: Productive Cough, Short of Breath, Wheezing. negative: Hemoptysis Cardiovascular: Chest Pain Gastrointestinal/Abdominal: Abdominal Pain. negative: Diarrhea, Nausea, Vomiting Genitourinary: negative: Hematuria Neurological: Headache, Weakness, Dizziness Musculoskeletal: Muscle Pain Integumentary: No Symptoms Reported Hematologic/Lymphatic: Easy Bleeding, Easy Bruising Endocrine: Decreased Appetite. negative: Flushing, Increased Thirst, Increased Urine All Other Systems: Reviewed and Negative Unable to Obtain Due To: Altered mental status PE - Vital Signs Vitals: Temperature 98.0 F Pulse Rate [Left Brachial] 102 Pulse Rate 122 Respiratory Rate 18 Blood Pressure [Left Thigh] 66/50 Blood Pressure [Left Arm] 84/40 Blood Pressure [Right Arm] 171/74 Blood Pressure 104/57 O2 Sat by Pulse Oximetry 98 - General Limitations: Altered Mental Status General Appearance: Alert, In Distress - Head Head Exam: Normal Inspection - Eyes Eye exam: Normal Appearance, PERRL. negative: Scleral Icterus, Conjunctival Injection, Periorbital Swelling, Periorbital Tenderness - ENT ENT Exam: Normal External Ear Exam External Ear Exam: Normal External Inspection TM/Canal Exam: Bilateral Normal Nose Exam: Normal Nose Exam Mouth Exam: Normal Inspection Throat Exam: Normal Inspection - Neck Neck Exam: Trachea Midline - Chest Chest Inspection: Symmetric Chest Wall Rise - Respiratory Respiratory Exam: Normal Lung Sounds Bilat Respiratory Exam: Bilateral Clear to Auscultation - Cardiovascular Cardiovascular Exam: Regular Rate, Normal Rhythm, Normal Heart Sounds - Abdominal Exam Abdominal Exam: Normal Bowel Sounds, Soft, Tenderness Abdominal Tenderness: Diffuse, Moderate - Extremities Extremities Exam: Normal Inspection - Back Back Exam: Normal Inspection - Neurologic Neurological Exam: Alert - Psychiatric Psychiatric Exam: Anxious - Skin Skin Exam: Erythema MDM - Additional Information Additional Information Obtained From: Family - Differential Diagnosis Differential Diagnosis: AMS, HYPOTENSION, SEPSIS, ABDOMINAL PAIN, DEHYDRATION, UTI Course - Treatment Treatment: SEE ORDERS. - Consultation Consultation Comments: CONSULT SURGERY FOR ABDOMINAL PAIN, ACUTE SURGIACAL ABDOMEN. DISCUSS PATIENT WITH DR. NELSON. HE WILL CONTINUE TO CARE FOR PATIENT IN THE CORRECTION. - Education/Counseling Education/Counseling: Patient, Family Educated On: Treatment, Diagnosis ROR - Labs Reviewed Laboratory Results Reviewed?: Yes Result Diagrams: 12/07/17 08:00 12/07/17 08:00 Laboratory: 12/07/17 09:36 Urine,Catheterized Urine Culture - Preliminary WBC 16.1 X10^3/uL (3.6-10.0) H 12/07/17 08:00 RBC 4.30 X10^6/uL (3.5-5.4) 12/07/17 08:00 Hgb 12.7 g/dL (12.0-16.0) 12/07/17 08:00 Hct 38.4 % (36.0-47.0) 12/07/17 08:00 MCV 89.3 fL (80.0-100.0) 12/07/17 08:00 MCH 29.5 pg (27.0-34.0) 12/07/17 08:00 MCHC 33.1 g/dL (33.0-35.0) 12/07/17 08:00 RDW 15.0 % (11.6-16.5) 12/07/17 08:00 Plt Count 678 X10^3/uL (150.0-450.0) H 12/07/17 08:00 Plt Count Comment Increased (ADEQUATE) A 12/07/17 08:00 MPV 9.1 fL (7.4-11.0) 12/07/17 08:00 Neut % 93.1 % (42.0-75.0) H 12/07/17 08:00 Lymph % 4.1 % (21.0-51.0) L 12/07/17 08:00 [place] % 2.3 % (0.0-13.0) 12/07/17 08:00 Eos % 0.0 % (0.9-2.9) L 12/07/17 08:00 Baso % 0.5 % (0.2-1.0) 12/07/17 08:00 Neut # 15.0 x10^3/uL (2.2-4.8) H 12/07/17 08:00 Lymph # 0.7 X10^3/uL (1.3-2.9) L 12/07/17 08:00 [place] # 0.4 x10^3/uL (0.3-0.8) 12/07/17 08:00 Eos # 0.0 x10^3/uL (0.0-0.2) 12/07/17 08:00 Baso # 0.1 X10^3/uL (0.0-0.1) 12/07/17 08:00 Absolute Nucleated RBC 0.1 /100WBC 12/07/17 08:00 Total Counted 100 12/07/17 08:00 Neutrophils % (Manual) 84 % (39-76) H 12/07/17 08:00 Band Neutrophils % 9 % (0-10) 12/07/17 08:00 Lymphocytes % (Manual) 6 % (13-43) L 12/07/17 08:00 Monocytes % (Manual) 1 % (4-9) L 12/07/17 08:00 Giant Platelets Rare 12/07/17 08:00 Plt Morphology Comment Abnormal (NORMAL) A 12/07/17 08:00 RBC Morphology Abnormal (NORMAL) A 12/07/17 08:00 Anisocytosis Slight A 12/07/17 08:00 Sodium 136 mmol/L (136-145) 12/07/17 08:00 Corrected Sodium 137 mmol/L (136-145) 12/07/17 08:00 Potassium 5.3 mmol/L (3.5-5.1) H 12/07/17 08:00 Chloride 100 mmol/L (98-107) 12/07/17 08:00 Carbon Dioxide 16.6 mmol/L (21-32) L 12/07/17 08:00 BUN 51 mg/dL (7-18) H 12/07/17 08:00 Creatinine 2.73 mg/dL (0.55-1.02) H 12/07/17 08:00 Est GFR (MDRD) Af Amer 21 (>60) L 12/07/17 08:00 Est GFR (MDRD) Non-Af 17 (>60) L 12/07/17 08:00 Glucose 159 mg/dL (65-99) H 12/07/17 08:00 Lactic Acid Cancelled 12/07/17 08:00 Calcium 9.8 mg/dL (8.5-10.1) 12/07/17 08:00 Corrected Calcium 10.9 mg/dL (8.5-10.1) H 12/07/17 08:00 Total Bilirubin 0.70 mg/dL (0.2-1.0) 12/07/17 08:00 AST 20 Units/L (15-37) 12/07/17 08:00 ALT 9 Units/L (12-78) L 12/07/17 08:00 Alkaline Phosphatase 80 Units/L (46-116) 12/07/17 08:00 C-Reactive Protein 147.00 mg/L (0-3.0) H 12/07/17 08:00 Total Protein 6.9 g/dL (6.4-8.2) 12/07/17 08:00 Albumin 2.6 g/dL (3.4-5.0) L 12/07/17 08:00 Globulin 4.3 g/dL (2.5-4.5) 12/07/17 08:00 Albumin/Globulin Ratio 0.6 Ratio (1.1-2.1) L 12/07/17 08:00 Specimen Type Catherized urine 12/07/17 09:36 Urine Color Yellow (YELLOW) 12/07/17 09:36 Urine Appearance Hazy (CLEAR) 12/07/17 09:36 Urine pH 7.0 (5.0 - 8.0) 12/07/17 09:36 Ur Specific [place] 1.010 (1.000-1.030) 12/07/17 09:36 Urine Protein 2+ (NEGATIVE) 12/07/17 09:36 Urine Glucose (UA) Negative (NEGATIVE) 12/07/17 09:36 Urine Ketones Negative (NEGATIVE) 12/07/17 09:36 Urine Occult Blood 1+ (NEGATIVE) 12/07/17 09:36 Urine Nitrite Negative (NEGATIVE) 12/07/17 09:36 Urine Bilirubin Negative (NEGATIVE) 12/07/17 09:36 Urine Urobilinogen Normal (NORMAL) 12/07/17 09:36 Ur Leukocyte Esterase 1+ (NEGATIVE) 12/07/17 09:36 Urine RBC 0-5 /HPF (NEGATIVE) 12/07/17 09:36 Urine WBC 5-10 /HPF (NEGATIVE) 12/07/17 09:36 Ur Squamous Epith Cells Moderate /HPF (NEGATIVE) 12/07/17 09:36 Ur Renal Epithelial Cell Few /HPF (NEGATIVE) 12/07/17 09:36 Calcium Oxalate Crystal Few /HPF (NEGATIVE) 12/07/17 09:36 Amorphous Sediment 3+ /HPF (NEGATIVE) 12/07/17 09:36 Urine Bacteria Trace /HPF (NEGATIVE) 12/07/17 09:36 Ur Culture Indicated? Yes/culture set up 12/07/17 09:36 - XRAY XRAY Findings: REPORT DISCUSS WITH FAMILY. THEY STILL DO NOT WISH ANY INTERVENTION. - EKG Rhythm: ST (EKG NOTED.) - Diagnosis Discharge Problem: Perforated viscus, Peritonitis (acute) generalized Sepsis Qualifiers: Sepsis type: sepsis due to unspecified organism Qualified Code(s): A41.9 - Sepsis, unspecified organism Hypotension Qualifiers: Hypotension type: unspecified hypotension type Qualified Code(s): I95.9 - Hypotension, unspecified UTI (urinary tract infection) Qualifiers: Urinary tract infection type: site unspecified Hematuria presence: without hematuria Qualified Code(s): N39.0 - Urinary tract infection, site not specified - Discharge Plan Disposition: 01 HOME, SELF-CARE Condition: Stable - Follow ups/Referrals Follow ups/Referrals: BRAD WATTERS [Primary Care Provider] - 3 days - Instructions Instructions: Urinary Tract Infection, Adult, [id number], Sepsis, Adult, Urinary Tract Infection, Adult, Peritonitis, Hypotension Additional Instructions: YOU ALSO HAVE PERFORATED VISCUS. PATIENT DNR NOT WANTING ANY FURTHER INVASIVE INTERVENTION INCLUDING SURGERY.
[2017-12-07 08:22] LABS: BASOPHILS # (AUTO) 0.1 X10^3/uL (0.0-0.1); BASOPHILS % (AUTO) 0.5 % (0.2-1.0); HEMATOCRIT 38.4 % (36.0-47.0); HEMOGLOBIN 12.7 g/dL (12.0-16.0); LYMPHOCYTES # (AUTO) 0.7 X10^3/uL (1.3-2.9); LYMPHOCYTES % (AUTO) 4.1 % (21.0-51.0); MEAN CORPUSCULAR HEMOGLOBIN 29.5 pg (27.0-34.0); MEAN CORPUSCULAR HGB CONC 33.1 g/dL (33.0-35.0); MEAN CORPUSCULAR VOLUME 89.3 fL (80.0-100.0); MEAN PLATELET VOLUME 9.1 fL (7.4-11.0); MONOCYTES # (AUTO) 0.4 x10^3/uL (0.3-0.8); MONOCYTES % (AUTO) 2.3 % (0.0-13.0); NEUTROPHILS % (AUTO) 93.1 % (42.0-75.0); PLATELET COUNT 678 X10^3/uL (150.0-450.0); WHITE BLOOD COUNT 16.1 X10^3/uL (3.6-10.0)
--- NOTE | 2017-12-07 08:31 | RAD ---
Examination: Portable AP chest History: SOB Comparison 11/29/2017 Findings: There is a 11.0 cm air containing mass projected over the heart. Cardiac margins are obscur ed. Compression atelectasis is noted in the lower lungs. There is no obvious pleural fluid or pneumot horax. There is gaseous distention of bowel in the left upper abdomen. Impression: Large air containing mass is compatible with intrathoracic hiatal hernia. However, the in creasing prominence and air distention is suggestive of some degree of incarceration or obstruction o f the herniated bowel, especially when considered with the history of increasing SOB and tachypnea. F ollow-up chest CT may be appropriate to evaluate this possibility. Reported By:
[2017-12-07 08:32] LABS: ALBUMIN 2.6 g/dL (3.4-5.0); CALCIUM 9.8 mg/dL (8.5-10.1); CARBON DIOXIDE 16.6 mmol/L (21-32); COR CA(FOR HYPOALB) 10.9 mg/dL (8.5-10.1); CREATININE 2.73 mg/dL (0.55-1.02); TOTAL PROTEIN 6.9 g/dL (6.4-8.2)
[2017-12-07 08:35] LABS: BAND NEUTROPHILS % 9 % (0-10)
[2017-12-07 08:36] LABS: GIANT PLATELET RARE
[2017-12-07 08:37] LABS: ANISOCYTOSIS SLIGHT; PLATELET MORPHOLOGY COMMENT ABNORMAL (NORMAL)
[2017-12-07] MEDS ORDERED: ZOSYN VIAL 3.375 GM 3.375 GM in NS 100 ML IV + SPIKE MINIBAG* 100 ML IV ONE (09:34)
[2017-12-07] MEDS ORDERED: NS 100 ML IV + SPIKE MINIBAG* 100 ML IV ONE (09:43)
[2017-12-07] MEDS ORDERED: ZOSYN VIAL 3.375 GM IV ONE (09:44)
[2017-12-07 09:53] LABS: BILIRUBIN,URINE NEGATIVE (NEGATIVE); BLOOD/HEMOGLOBIN,URINE 1+ (NEGATIVE); GLUCOSE, URINE NEGATIVE (NEGATIVE); KETONES,URINE NEGATIVE (NEGATIVE); LEUKOCYTE ESTERASE ,URINE 1+ (NEGATIVE); NITRITES,URINE NEGATIVE (NEGATIVE); PROTEIN,URINE 2+ (NEGATIVE); UROBILINOGEN,URINE NORMAL (NORMAL)
[2017-12-07 10:06] LABS: APPEARANCE,URINE HAZY (CLEAR); BACTERIA,URINE TRACE /HPF (NEGATIVE); COLOR,URINE YELLOW (YELLOW); RBC,URINE 0-5 /HPF (NEGATIVE); RENAL EPITHELIAL CELLS,URINE FEW /HPF (NEGATIVE); SQUAMOUS EPITHELIAL CELL,UR MODERATE /HPF (NEGATIVE)
[2017-12-07 10:07] LABS: AMORPHOUS SEDIMENT,UR 3+ /HPF (NEGATIVE); CALCIUM OXALATE CRYSTALS,UR FEW /HPF (NEGATIVE)
--- NOTE | 2017-12-07 11:12 | CT ---
HISTORY: Abnormal chest x-ray, shortness of breath Study: CT chest without contrast Comparison: Radiograph same day, CT guided 06/05/2017 Technique: Multiple axial images of the chest were obtained from the thoracic inlet to the upper abdo men without IV contrast. Dose reduction techniques including Automated Exposure Control (AEC) and ad justment of mA and kV were utilized. Findings: Please note evaluation is limited without IV contrast. There is a massive hiatal hernia with intratho racic stomach again noted. There is scattered free air seen around the hernia itself as well as a lar ge bowel free air seen in the visualized upper abdomen see. There are bilateral pleural effusions and bibasilar atelectasis. There is mass effect on the heart a large hernia. Free fluid is also seen rober und the liver. There is extensive atherosclerotic calcification aorta coronary arteries. There are mu ltiple compression fractures throughout the thoracic spine in the setting of severe osteopenia that a re chronic except for the fracture T4 which new from prior chest CT. IMPRESSION: 1. Large amount intraperitoneal free air and fluid compatible with bowel perforation. Urgent surgical evaluation recommended. 2. Massive hiatal hernia with intrathoracic stomach that appears worsened from prior with mass effect upon the heart. A small amount free air is seen around the hernia but abdominal source of perforatio n is favored. 3. Bilateral pleural effusions. 4. Multiple chronic thoracic compression fractures with T4 fracture new from prior study but also age indeterminate. The results were communicated to Dr. Lucero at 11:10 a.m. by Rk Cano MD. Reported By:
--- NOTE | 2017-12-07 12:20 | CT ---
HISTORY: Hypotension, pneumoperitoneum Study: CT abdomen pelvis without contrast Comparison: Chest CT 12/07/2017 Technique: Axial noncontrast images with coronal and sagittal reformats. Dose reduction procedures we re used with mA/kv adjusted for body size. The examination is limited due to the lack of intravenous contrast. Findings: The lung bases are clear. Bilateral pleural effusions are present. There is a very large hiatal herni a present in the form of a nearly completely intra thoracic stomach. There is a large pneumoperitoneu m present suggestive of a perforated viscus. There is some free air surrounding the intra thoracic st omach. Many perforation of a portion of the stomach or proximal duodenum could not be excluded. There is moderate ascites present. The liver, spleen, adrenal glands, and pancreas are within normal limit s to the limitations of an unenhanced examination. The kidneys are unobstructed . There is a tiny lef t upper pole renal calculus. No left renal calculus is present. No ureteral calculi are identified. C alcific atherosclerotic changes present in a nondilated abdominal aorta. No intraperitoneal or retrop eritoneal lymphadenopathy is identified. There are no findings suggestive of diverticulitis or coliti s. Extraluminal air is identified adjacent to the descending colon. A perforated diverticulum is anot her possible source of the pneumoperitoneum. No pelvic masses or pelvic lymphadenopathy is identified . There is a Sauceda catheter within the bladder. No lytic or blastic skeletal lesions are identified. IMPRESSION: Massive pneumoperitoneum indicating a perforated viscus. Extraluminal air adjacent to the patient int ra thoracic stomach can also adjacent to the left colon suggest possible sites of perforation althoug h this cannot be confirmed on this examination. Expedient surgical evaluation is recommended. Intra thoracic stomach Ascites Bilateral pleural effusions Reported By:
[2017-12-07] MEDS ORDERED: DILAUDID INJ IM ONE (12:47)
[2017-12-07] MEDS ORDERED: FLAGYL IV PREMIX 500 MG BAG 500 MG/100 ML BAG IV ONE ×2 (12:47→12:54)
[2017-12-07] MEDS ORDERED: DILAUDID INJ ONE (12:49)
--- NOTE | 2017-12-07 12:49 | RAD ---
HISTORY: Central line placement Study: Chest AP portable Comparison: 12/07/2017 8:23 a.m. Findings: There is a new left-sided central line with its tip in the superior vena cava. The heart is enlarged. No congestive heart failure is noted. The aorta is calcified. The lung victoria are clear. There is a large hiatal hernia present. The patient's pneumoperitoneum is well visualized. IMPRESSION: Right-sided central line tip superior vena cava, no pneumothorax Lungs clear Large hiatal hernia Pneumoperitoneum as was demonstrated on prior chest CT Reported By:
[2017-12-07 13:02] VITALS: BP 84/40
== END 2017-12-07 15:12 | disposition home or self-care (01) ==
LOC: ER 07:33
DX: K63.1 Perforation of intestine (nontraumatic) (principal); K65.0 Generalized (acute) peritonitis; A41.9 Sepsis, unspecified organism; I95.9 Hypotension, unspecified; N39.0 Urinary tract infection, site not specified
CPT/HCPCS: 36415; 36556; 51702; 71045; 71250; 74176; 80053; 81001; 85025; 86140; 87086; 93005; 93010; 96365; 96367; 96374; 99283; 99285; A4222; S0030; J2543